=== PATIENT | female | born 1935 | race Caucasian/White ===

== ENCOUNTER → 2023-09-25 11:50 | Outpatient (REF) | payer MEDICARE, BC, SELFPAY ==
[2023-09-25 13:00] LABS: Hematocrit 34.6 % (37.0-47.0); Hemoglobin 10.9 g/dL (12.0-16.0); Mean Corp Hgb Conc. 31.5 g/dL (33.0-37.0); Mean Corpuscular Hgb 29.9 pg (27.0-31.0); Mean Corpuscular Volume 94.8 fL (81.0-99.0); Mean Platelet Volume 10.4 fL (7.4-10.4); Platelet Count 176 10^3/uL (130-400); Red Blood Cell Count 3.65 10^6/uL (4.20-5.40); White Blood Cell Count 4.1 10^3/uL (4.8-10.8)
[2023-09-25 13:20] LABS: ALT (SGPT) 14 U/L (0-35); AST (SGOT) 18 U/L (14-36); Alkaline Phosphatase 87 U/L (38-126); Blood Urea Nitrogen 35 mg/dl (7-17); Calcium 8.8 mg/dl (8.4-10.2); Carbon Dioxide 28 mmol/L (22-30); Chloride 104 mmol/L (98-107); Glucose 109 mg/dl (70-99); HDL Cholesterol 56 mg/dl; LDL Cholesterol, Calculated 44 mg/dl; Potassium 5.6 mmol/L (3.5-5.1); Sodium 137 mmol/L (135-145); Total Bilirubin 0.5 mg/dl (0.2-1.3); Total Cholesterol 112 mg/dl (50-199); Total Protein 6.1 g/dl (6.3-8.2); Triglyceride 62 mg/dl (10-149); Very Low Density Lipoprotein 12 mg/dl (0-30); eGFR 40.05
[2023-09-25 13:36] LABS: Free T4 1.25 ng/dl (0.78-2.19)
[2023-09-25 13:51] LABS: TSH 0.64 uIU/ml (0.47-4.68)
[2023-09-25 14:24] LABS: Glycohemoglobin (HgbA1c) 8.4 % (4.0-5.6)
== END ==
LOC: OLABN 11:50
PROVIDERS: ATTENDING PHYSICIAN Internal Medicine Geriatric Medicine
DX: E78.5 Hyperlipidemia, unspecified (principal); E11.22 Type 2 diabetes mellitus with diabetic chronic kidney disease; E03.9 Hypothyroidism, unspecified
CPT/HCPCS: 36415; 80053; 80061; 83036; 84439; 84443; 85027

== ENCOUNTER → 2023-12-18 09:53 | Outpatient (REF) | payer MEDICARE, BC, SELFPAY ==
[2023-12-18 11:49] LABS: ALT (SGPT) < 10 U/L (0-35); AST (SGOT) 17 U/L (14-36); Albumin 3.2 g/dl (3.5-5.0); Alkaline Phosphatase 109 U/L (38-126); Blood Urea Nitrogen 34 mg/dl (7-17); Calcium 8.8 mg/dl (8.4-10.2); Carbon Dioxide 25 mmol/L (22-30); Chloride 105 mmol/L (98-107); Glucose 184 mg/dl (70-99); Iron 68 ug/dl (37-170); Potassium 5.3 mmol/L (3.5-5.1); Sodium 137 mmol/L (135-145); Total Bilirubin 0.3 mg/dl (0.2-1.3); Total Protein 6.1 g/dl (6.3-8.2); eGFR 48.94
[2023-12-18 12:07] LABS: Vitamin D, 25-OH*** 40.4 ng/mL (30-80)
[2023-12-18 12:29] LABS: Glycohemoglobin (HgbA1c) 8.2 % (4.0-5.6)
== END ==
LOC: OLABN 09:53
PROVIDERS: ATTENDING PHYSICIAN Internal Medicine Geriatric Medicine
DX: E11.29 Type 2 diabetes mellitus with other diabetic kidney complication (principal); E55.9 Vitamin D deficiency, unspecified; E61.1 Iron deficiency
CPT/HCPCS: 36415; 80053; 82306; 83036; 83540

== ENCOUNTER → 2024-03-25 12:28 | Outpatient (REF) | payer MEDICARE, BC, SELFPAY ==
[2024-03-25 13:27] LABS: Hematocrit 32.3 % (37.0-47.0); Hemoglobin 10.6 g/dL (12.0-16.0); Mean Corp Hgb Conc. 32.8 g/dL (33.0-37.0); Mean Corpuscular Hgb 30.9 pg (27.0-31.0); Mean Corpuscular Volume 94.2 fL (81.0-99.0); Mean Platelet Volume 10.4 fL (7.4-10.4); Platelet Count 178 10^3/uL (130-400); Red Blood Cell Count 3.43 10^6/uL (4.20-5.40); Red Cell Dist. Width 13.1 % (11.5-14.5); White Blood Cell Count 3.6 10^3/uL (4.8-10.8)
[2024-03-25 13:37] LABS: ALT (SGPT) < 10 U/L (0-35); AST (SGOT) 15 U/L (14-36); Albumin 3.2 g/dl (3.5-5.0); Alkaline Phosphatase 102 U/L (38-126); Blood Urea Nitrogen 32 mg/dl (7-17); Calcium 8.7 mg/dl (8.4-10.2); Carbon Dioxide 27 mmol/L (22-30); Chloride 104 mmol/L (98-107); Glucose 142 mg/dl (70-99); HDL Cholesterol 43 mg/dl; LDL Cholesterol, Calculated 84 mg/dl; Potassium 5.6 mmol/L (3.5-5.1); Sodium 139 mmol/L (135-145); Total Bilirubin 0.4 mg/dl (0.2-1.3); Total Cholesterol 148 mg/dl (50-199); Total Protein 5.9 g/dl (6.3-8.2); Triglyceride 109 mg/dl (10-149); Very Low Density Lipoprotein 21 mg/dl (0-30); eGFR 33.73
[2024-03-25 13:49] LABS: Free T4 1.19 ng/dl (0.78-2.19)
[2024-03-25 14:36] LABS: Glycohemoglobin (HgbA1c) 7.5 % (4.0-5.6)
== END ==
LOC: OLABN 12:28
PROVIDERS: ATTENDING PHYSICIAN Internal Medicine Geriatric Medicine
DX: E11.22 Type 2 diabetes mellitus with diabetic chronic kidney disease (principal); E78.5 Hyperlipidemia, unspecified; E03.9 Hypothyroidism, unspecified
CPT/HCPCS: 36415; 80053; 80061; 83036; 84439; 84443; 85027

== ENCOUNTER → 2024-06-26 10:25 | Outpatient (REF) | payer MEDICARE, BC, SELFPAY ==
[2024-06-26 14:56] LABS: Glycohemoglobin (HgbA1c) 7.7 % (4.0-5.6)
== END ==
LOC: OLABN 10:25
PROVIDERS: ATTENDING PHYSICIAN Internal Medicine Geriatric Medicine
DX: E11.22 Type 2 diabetes mellitus with diabetic chronic kidney disease (principal)
CPT/HCPCS: 36415; 83036

== ENCOUNTER → 2024-09-23 11:07 | Outpatient (REF) | payer MEDICARE, BC, SELFPAY ==
[2024-09-23 13:02] LABS: Hematocrit 37.5 % (37.0-47.0); Hemoglobin 11.9 g/dL (12.0-16.0); Mean Corp Hgb Conc. 31.7 g/dL (33.0-37.0); Mean Corpuscular Hgb 29.8 pg (27.0-31.0); Mean Corpuscular Volume 93.8 fL (81.0-99.0); Platelet Count 159 10^3/uL (130-400); Red Cell Dist. Width 13.1 % (11.5-14.5); White Blood Cell Count 3.6 10^3/uL (4.8-10.8)
[2024-09-23 13:07] LABS: ALT (SGPT) 10 U/L (0-35); AST (SGOT) 15 U/L (14-36); Albumin 3.7 g/dl (3.5-5.0); Alkaline Phosphatase 102 U/L (38-126); Blood Urea Nitrogen 26 mg/dl (7-17); Calcium 9.1 mg/dl (8.4-10.2); Carbon Dioxide 27 mmol/L (22-30); Chloride 98 mmol/L (98-107); Glucose 221 mg/dl (70-99); HDL Cholesterol 61 mg/dl; LDL Cholesterol, Calculated 94 mg/dl; Potassium 5.5 mmol/L (3.5-5.1); Sodium 132 mmol/L (135-145); Total Bilirubin 0.8 mg/dl (0.2-1.3); Total Cholesterol 176 mg/dl (50-199); Total Protein 6.5 g/dl (6.3-8.2); Triglyceride 109 mg/dl (10-149); Very Low Density Lipoprotein 21 mg/dl (0-30); eGFR 43.81
[2024-09-23 13:19] LABS: Free T4 1.65 ng/dl (0.78-2.19)
[2024-09-23 13:27] LABS: Glycohemoglobin (HgbA1c) 7.5 % (4.0-5.6)
== END ==
LOC: OLABN 11:07
PROVIDERS: ATTENDING PHYSICIAN Internal Medicine Geriatric Medicine
DX: E78.5 Hyperlipidemia, unspecified (principal); E11.22 Type 2 diabetes mellitus with diabetic chronic kidney disease; E03.9 Hypothyroidism, unspecified
CPT/HCPCS: 36415; 80053; 80061; 83036; 84439; 84443; 85027

== ENCOUNTER → 2024-09-28 11:01 | Outpatient (REF) | payer MEDICARE, SELFPAY ==
[2024-09-28 12:59] LABS: TSH 0.92 uIU/ml (0.47-4.68)
== END ==
LOC: OLABN 11:01
PROVIDERS: ATTENDING PHYSICIAN Internal Medicine Geriatric Medicine
DX: E03.9 Hypothyroidism, unspecified (principal)
CPT/HCPCS: 36415; 84443

== ENCOUNTER → 2024-12-23 11:07 | Outpatient (REF) | payer MEDICARE, SELFPAY ==
[2024-12-23 11:47] LABS: Blood Urea Nitrogen 27 mg/dl (7-17); Calcium 8.2 mg/dl (8.4-10.2); Carbon Dioxide 29 mmol/L (22-30); Chloride 102 mmol/L (98-107); Glucose 85 mg/dl (70-99); Iron 49 ug/dl (37-170); Potassium 4.7 mmol/L (3.5-5.1); Sodium 135 mmol/L (135-145); eGFR 43.81
[2024-12-23 12:03] LABS: Glycohemoglobin (HgbA1c) 7.3 % (4.0-5.6); Vitamin D, 25-OH*** 36.7 ng/mL (30-80)
== END ==
LOC: OLABN 11:07
PROVIDERS: ATTENDING PHYSICIAN Internal Medicine Geriatric Medicine
DX: E87.5 Hyperkalemia (principal); E11.22 Type 2 diabetes mellitus with diabetic chronic kidney disease; E61.1 Iron deficiency; E55.9 Vitamin D deficiency, unspecified
CPT/HCPCS: 36415; 80048; 82306; 83036; 83540

== ENCOUNTER → 2025-03-11 11:01 | Outpatient (REF) | payer MEDICARE, SELFPAY ==
[2025-03-11 12:38] LABS: Hematocrit 35.5 % (37.0-47.0); Hemoglobin 10.8 g/dL (12.0-16.0); Mean Corp Hgb Conc. 30.4 g/dL (33.0-37.0); Mean Corpuscular Volume 91.3 fL (81.0-99.0); Nucleated Red Blood Cells % 0 %; Platelet Count 189 10^3/uL (130-400); Red Cell Dist. Width 14.9 % (11.5-14.5)
[2025-03-11 13:27] LABS: ALT (SGPT) < 10 U/L (0-35); AST (SGOT) 11 U/L (14-36); Albumin 2.6 g/dl (3.5-5.0); Alkaline Phosphatase 73 U/L (38-126); Blood Urea Nitrogen 21 mg/dl (7-17); Calcium 8.1 mg/dl (8.4-10.2); Carbon Dioxide 27 mmol/L (22-30); Chloride 105 mmol/L (98-107); Glucose 144 mg/dl (70-99); Potassium 4.4 mmol/L (3.5-5.1); Sodium 135 mmol/L (135-145); Total Protein 5.2 g/dl (6.3-8.2); eGFR 43.81
== END ==
LOC: OLABN 11:01
PROVIDERS: ATTENDING PHYSICIAN Internal Medicine Geriatric Medicine
DX: I87.2 Venous insufficiency (chronic) (peripheral) (principal); I73.9 Peripheral vascular disease, unspecified; D63.8 Anemia in other chronic diseases classified elsewhere
CPT/HCPCS: 36415; 80053; 83880; 85025

== ENCOUNTER → 2025-03-17 10:45 | Outpatient (REF) | payer MEDICARE, SELFPAY ==
[2025-03-17 12:01] LABS: Blood Urea Nitrogen 16 mg/dl (7-17); Calcium 8.2 mg/dl (8.4-10.2); Carbon Dioxide 28 mmol/L (22-30); Chloride 105 mmol/L (98-107); Glucose 127 mg/dl (70-99); Potassium 4.7 mmol/L (3.5-5.1); Sodium 133 mmol/L (135-145); eGFR > 60.00
== END ==
LOC: OLABN 10:45
PROVIDERS: ATTENDING PHYSICIAN Internal Medicine Geriatric Medicine
DX: I50.20 Unspecified systolic (congestive) heart failure (principal)
CPT/HCPCS: 36415; 80048; 83880

== ENCOUNTER → 2025-03-24 09:57 | Outpatient (REF) | payer MEDICARE, SELFPAY ==
[2025-03-24 11:00] LABS: Hematocrit 34.0 % (37.0-47.0); Hemoglobin 10.4 g/dL (12.0-16.0); Mean Corp Hgb Conc. 30.6 g/dL (33.0-37.0); Mean Corpuscular Volume 91.6 fL (81.0-99.0); Platelet Count 163 10^3/uL (130-400); Red Cell Dist. Width 14.9 % (11.5-14.5)
[2025-03-24 11:48] LABS: ALT (SGPT) < 10 U/L (0-35); AST (SGOT) 14 U/L (14-36); Albumin 2.5 g/dl (3.5-5.0); Alkaline Phosphatase 69 U/L (38-126); Blood Urea Nitrogen 19 mg/dl (7-17); Calcium 7.9 mg/dl (8.4-10.2); Carbon Dioxide 25 mmol/L (22-30); Chloride 107 mmol/L (98-107); Glucose 134 mg/dl (70-99); HDL Cholesterol 51 mg/dl; LDL Cholesterol, Calculated 38 mg/dl; Potassium 4.8 mmol/L (3.5-5.1); Sodium 133 mmol/L (135-145); Total Protein 5.2 g/dl (6.3-8.2); Very Low Density Lipoprotein 13 mg/dl (0-30); eGFR 36.41
[2025-03-24 12:19] LABS: TSH 3.01 uIU/ml (0.47-4.68)
[2025-03-24 14:06] LABS: Glycohemoglobin (HgbA1c) 7.2 % (4.0-5.6)
== END ==
LOC: OLABN 09:57
PROVIDERS: ATTENDING PHYSICIAN Internal Medicine Geriatric Medicine
DX: E78.5 Hyperlipidemia, unspecified (principal); E11.22 Type 2 diabetes mellitus with diabetic chronic kidney disease; I50.20 Unspecified systolic (congestive) heart failure
CPT/HCPCS: 36415; 80053; 80061; 83036; 83880; 84439; 84443; 85027

== ENCOUNTER 2025-03-30 16:33 | Inpatient (IN) | payer MEDICARE, SELFPAY ==
[2025-03-30] VITALS (14 sets, daily range): BP systolic 87–134; BP diastolic 50–103; BMI 23.3
[2025-03-30 12:07] LABS: Hematocrit 35.7 % (37.0-47.0); Hemoglobin 11.1 g/dL (12.0-16.0); Mean Corp Hgb Conc. 31.1 g/dL (33.0-37.0); Mean Corpuscular Volume 89.0 fL (81.0-99.0); Nucleated Red Blood Cells % 0 %; Platelet Count 229 10^3/uL (130-400); Red Cell Dist. Width 14.6 % (11.5-14.5)
[2025-03-30 12:29] LABS: Urine Character Cloudy (Clear)
[2025-03-30 12:42] LABS: ALT (SGPT) 14 U/L (0-35); AST (SGOT) 17 U/L (14-36); Albumin 2.7 g/dl (3.5-5.0); Alkaline Phosphatase 122 U/L (38-126); Blood Urea Nitrogen 43 mg/dl (7-17); Calcium 8.2 mg/dl (8.4-10.2); Carbon Dioxide 24 mmol/L (22-30); Chloride 97 mmol/L (98-107); Estimated Creatinine Clearance 21 ml/min; Glucose 204 mg/dl (70-99); Sodium 127 mmol/L (135-145); Total Protein 5.5 g/dl (6.3-8.2); eGFR 26.93
--- NOTE | 2025-03-30 12:47 | ED.GENMED ---
History of Present Illness
General
Chief Complaint: Change Level of Consciousness
Source: patient, records and [facility] records
Exam Limitations: altered mental status
Time Seen by Provider: 03/30/25 12:35
Nursing documentation reviewed up to this point in time: agreed with
History of Present Illness
History of Present Illness:
CO patient presents with confusion, period of unrepsonsiveness
here she is febrile, hypoxic
tells me she has't eaten in a few days
iddm, pvd, s/p aka left
ex smoker
not on oxygen
Past History
Past History
ED Past Medical History: IDDM and Other (Chronic anemia)
ED Past Surgical History: Orthopedic and Other (4 toes amputated, L AKA, vein work)
Social History
Tobacco: Former smoker
Alcohol: None
Drug: None
Personal:
Living: [facility]
Employment: Not employed
Family History
Family History: Other (Noncontributory)
Review of Systems
Review of Systems
Other source history: transfer record
All Other Systems: Not applicable
Respiratory: Reports cough and trouble breathing
Neurological: Reports weakness
Phy Exam
General Physical Exam
General Presentation: mild distress
General Skin: warm
Cardiovascular Exam
Cardiovascular Exam: irregularly irregular
Pulmonary Exam
Pulmonary Exam: generalized wheezing
Oxygen Status: oxygen 3 liters via NC
Cough: no cough
Gastrointestinal Exam
Gastrointestinal Exam: non tender and soft
Neurological Exam
Neurological Exam: alert and oriented x3
Musculoskeletal Exam
Musculoskeletal Exam: full ROM and AKA
Skin Exam
Skin Exam: warm/dry
Psychiatric Exam
Psychiatric Exam: other (calm, )
Sepsis
Sepsis Screening
Sepsis Assessment: Sepsis
Sepsis Screen
Sepsis Screen: Sepsis
Date: 03/30/25
Time: 18:54
Course
Orders/Labs/Results
Orders:
Orders
03/30/25 11:45
Electrocardiogram (*1) Urgent
Reason for Study: Shortness of Breath
03/30/25 11:46
EKG- Treatment ONCE
03/30/25 11:47
Complete Blood Count/With Diff Urgent
03/30/25 12:18
Comprehensive Metabolic Panel Urgent
NT-proBNP Urgent
Troponin I Urgent
Urinalysis Reflex To Culture Urgent
Date Specimen was Collected: 03/30/25
Time Specimen was Collected: 12:16
Urine Microscopic Reflex Cult Urgent
Urine Culture Urgent
FANTA Source: U
Specimen Description:
Date Specimen was Collected: 03/30/25
Time Specimen was Collected: 12:16
03/30/25 12:35
CR Chest Portable - 1 View Urgent
Comment:
Reason For Exam: fever
Reason Study Needs to be Portable: Patient Unstable
03/30/25 12:47
CT Head W/o Iv Contrast Urgent
Comment:
Reason For Exam: urepsoensive
0.9% Sodium Chloride 1000 ml [Nss] 1,000 ml IV BOLUS
Acetaminophen [Tylenol] 650 mg PO NOW STA
03/30/25 13:51
Piperacillin/Tazo 2.25 Gram [Zosyn] 2.25 grams in 50 ml IV NOW
03/30/25 Dinner
1800 calorie (15 carb) Diabetic
At Your Request: Limited Participation
Does patient need a safe tray?: No
03/30/25 15:13
0.9% Sodium Chloride 1000 ml [Nss] 1,000 ml IV BOLUS
03/30/25 16:03
Admit/Transfer Patient As Directed
Co-Sign Provider:
Level of Care: Inpatient admission
Assign to:: IMU- Intermediate Care
Physician / Group: Hospitalist
Diagnosis: Acute metabolic encephalopathy secondary to sepsis
Reason for Hospitalization: Acute metabolic encephalopathy secondary to sepsis
Expected length of stay greater than two midnights?: Yes
ELOS- Estimated Length of Stay in days: 3
I certify the patient meets the requirements for IP care: Yes
03/30/25 16:04
PRN Pain Medication Management As Directed
May give lesser potent ordered pain med per pt: Yes
preference::
Protocol:: Medication orders for pain may be administered in a
manner that supports deferring to patient preference
when the pt is:
- Requesting an ordered lesser potent pain medication.
Least to most potent pain medications are defined
as: acetaminophen < NSAID < tramadol < opioids
(morphine, oxycodone, hydromorphone).
- Requesting a lesser dose of the same medication IF
ORDERED.
- Requesting a less intrusive route of administration
if both routes are prescribed by the provider (PO <
IV).
03/30/25 16:11
Code Status As Directed
Resuscitation Status: Do not resuscitate
Based on pt advanced directive or healthcare POA form: Yes
DNR Bracelet Application ONCE
Abnormal Lab Results
03/30/25 03/30/25
11:47 12:18
RBC 4.01 L 10^6/uL
(4.20-5.40)
Hgb 11.1 L g/dL
(12.0-16.0)
Hct 35.7 L %
(37.0-47.0)
MCHC 31.1 L g/dL
(33.0-37.0)
RDW 14.6 H %
(11.5-14.5)
Abs Immat Gran (auto) 0.1 H 10^3/uL
(0-0.05)
Absolute Neuts (auto) 10.0 H 10^3/uL
(1.4-6.5)
Absolute Lymphs (auto) 0.3 L 10^3/uL
(1.2-3.4)
Neutrophils % 92.4 H %
(42.2-75.2)
Lymphocytes % 2.8 L %
(20.5-51.1)
Sodium 127 L mmol/L
(135-145)
Chloride 97 L mmol/L
(98-107)
BUN 43 H mg/dl
(7-17)
Creatinine 1.8 H mg/dL
(0.6-1.0)
Glucose 204 H mg/dl
(70-99)
Calcium 8.2 L mg/dl
(8.4-10.2)
Total Protein 5.5 L g/dl
(6.3-8.2)
Albumin 2.7 L g/dl
(3.5-5.0)
Ur Occult Blood Reflex 4+ A
(Negative)
Leukocyte Esterase Rfl 3+ A
(Negative)
Urine WBC (Reflex) 60-70 A /HPF
(0-5)
Urine Bacteria (Reflex) Few A
(Negative)
Urine Glucose 2+ A
(Negative)
Urine Albumin (Reflex) 3+ A
(Neg - Trace)
03/30/25 11:47
03/30/25 12:18
Vital Signs
Initial and Last Documented VS:
Initial Vital Signs
Pulse Resp BP Pulse Ox
130 20 134/93 71
03/30/25 11:47 03/30/25 11:47 03/30/25 11:47 03/30/25 11:47
Last Documented Vital Signs
Temp Pulse Resp BP Pulse Ox
97.6 F 98 18 113/73 100
03/30/25 16:27 03/30/25 17:54 03/30/25 17:54 03/30/25 17:24 03/30/25 17:54
MDM/Problems Addressed
Differential Diagnosis Includes:
infection, metabolic, structureal
MDM/Problems Addressed:
confusion fever low oxygen
Chronic conditions affecting care: DM and Kidney disease
Acute Exacerbation and/or Progression of Chronic Illness: DM and Kidney disease
*Radiology
Radiology exam reviewed: preliminary read by ED provider
*Pulse Oximetry
SaO2: 71
Oxygen Mode of Delivery: Room air
Patient hypoxic: yes
*EKG
Interpreted by ED Provider?: Yes
Interpretation: abnormal
Comparison EKG: no comparison EKG present
Rate: tachycardiac
Rhythm: a-fib
Ischemia: non-specific ST changes
*[employer] Interpretation
Rate: tachycardiac
Interpretation: abnormal
Heart Rate: 118
Rhythm: a-fib
*Critical Care Note
Total Time (30-74mins, 75-104mins- exclusive of procedures): 31
Data Reviewed
Review of Other/Old Records Reveals: Labs, Progress Notes and Discharge Summary
Source: patient, records and [facility] records
ED Attending Note
-
Portions of this chart may have been created with voice recognition software.� Occasional wrong word or��sound alike� substitutions may have occurred due to the inherent limitations of voice recognition software.
Discharge Plan
Departure
Patient Disposition: Admit
Date of Disposition: 03/30/25
Time of Disposition: 14:25
Admit to: Telemetry
Presentation/result/management discussed w/ accepting MD/DO: Hospitalist
Patient with high blood pressure during this ER visit?: No
Condition: Fair
Covid-19: Not Applicable
Discharge Problem:
Weakness, Acute UTI, Hypoxia, hyponatremia
Interventions
Interventions:
*Risk Screen - Suicide Last Done: 03/30/25 11:47
*General Assessment Last Done: 03/30/25 11:47
*Neglect/Abuse Screening Last Done: 03/30/25 11:47
*ED- Fall Risk Assessment Last Done: 03/30/25 11:47
*ED COVID-19 Vaccine History Last Done: 03/30/25 11:47
ED- Cardiac Assessment Last Done: 03/30/25 11:47
ED- Neurological Assessment Last Done: 03/30/25 11:47
ED-Psychological Assessment Last Done: 03/30/25 11:47
ED- Pulmonary Assessment Last Done: 03/30/25 11:47
[2025-03-30 12:55] LABS: Urine Red Blood Cell 0-2 /HPF (0-2); Urine Squamous Cell 0-2 /LPF (Few)
[2025-03-30 12:56] LABS: Urine White Cell 60-70 /HPF (0-5)
[2025-03-30] MEDS: TYLENOL 650 MG PO (12:58)
[2025-03-30] MEDS: NSS 1000 IV ×3 (12:59→21:39)
[2025-03-30 13:01] LABS: Troponin I 0.024 ng/ml
[2025-03-30 13:06] LABS: Potassium 4.6 mmol/L (3.5-5.1)
[2025-03-30] MEDS: ZOSYN 50 IV ×2 (14:23→21:38)
--- NOTE | 2025-03-30 14:43 | W.PN.UPDATE ---
Update Note
Progress Note Update
I personally performed a history and physical exam of the patient and discussed management with the resident. I reviewed the resident's note and agree with the documented findings and plan of care HPI/CC.
89-year-old female who presents with a chief complaint of change in mental status.
105/50, 125, 17, 100.2 F, 71% on 5L NC O2
Gen: NAD, awake and alert, appears chronically ill
Eyes: EOMI, PERRLA, no scleral icterus.
Neck: supple.
CV: Tachycardic, irregularly irregular, +S1/S2, no m/r/g.
Resp: CTAB anteriorly, no rales, wheezes, or rhonchi.
Abd: +BS, soft, NT, ND
Skin: No rashes. Right lower extremity with 1�2+ edema, L AKA
Neuro: CN 2-12 intact, non-focal.
Psych: Normal mood and affect.
Lab Results
03/30/25 03/30/25
11:47 12:18
WBC 10.8
RBC 4.01 L
Hgb 11.1 L
Hct 35.7 L
MCV 89.0
MCH 27.7
MCHC 31.1 L
RDW 14.6 H
Plt Count 229 D
MPV 9.9
Abs Immat Gran (auto) 0.1 H
Absolute Neuts (auto) 10.0 H
Absolute Lymphs (auto) 0.3 L
Absolute Monos (auto) 0.4
Absolute Eos (auto) 0.0
Absolute Basos (auto) 0.0
Immature Gran % 0.5
Neutrophils % 92.4 H
Lymphocytes % 2.8 L
Monocytes % 3.9
Eosinophils % 0.1
Basophils % 0.3
Nucleated RBC % 0
Sodium Cancelled 127 L
Potassium Cancelled 4.6
Chloride Cancelled 97 L
Carbon Dioxide Cancelled 24
BUN Cancelled 43 H
Creatinine Cancelled 1.8 H
Estimated Creat Clear Cancelled 21
eGFR Cancelled 26.93
Glucose Cancelled 204 H
Calcium Cancelled 8.2 L
Total Bilirubin Cancelled 0.9
AST Cancelled 17
ALT Cancelled 14
Alkaline Phosphatase Cancelled 122
Troponin I Cancelled 0.024
Xns-J-Dyyzpozyubh Pept Cancelled [id number]
Total Protein Cancelled 5.5 L
Albumin Cancelled 2.7 L
Urine Color Yellow
Urine Clarity Cloudy
Urine pH 5.0
Ur Specific Hughes 1.025
Urine Ketones Negative
Ur Occult Blood Reflex 4+ A
Urine Nitrite (Reflex) Negative
Urine Bilirubin Negative
Urine Urobilinogen Negative
Leukocyte Esterase Rfl 3+ A
Urine RBC 0-2
Urine WBC (Reflex) 60-70 A
Ur Squamous Epith Cells 0-2
Urine Bacteria (Reflex) Few A
Urine Glucose 2+ A
Urine Albumin (Reflex) 3+ A
CT brain: No evidence of acute intracranial abnormality. 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 Interval increase in paranasal sinus disease especially on the right side compared to prior CT of the head.
Extensive left-sided paranasal sinus disease appears fairly stable.
CXR: Subtle increase in interstitial markings within the mid to lower lungs, new from previous radiograph. Main differential considerations of interstitial edema and interstitial-type pneumonia
Acute hypoxemic respiratory failure:
-71% on 5L NC O2 on admission, afebrile (temp 100.2 F)
-current etiology for hypoxemia is PNA
-given Zosyn in ER
-cont with Zosyn/Vanco
Pyuria/possible UTI:
-cont Zosyn
-follow UCx
Severe sepsis:
-with acute metabolic encephalopathy
-POA a/e/b tachycardia, tachypnea, source of infection PNA +/- UTI with evidence of end organ damage of GABBY
-1L NS given in the ER
-with hypotension needs another 1L for 30cc/kg
-trend Cr
Afib with RVR:
-c/s cards
-check echo
-volume resuscitation/sepsis tx prior to additional rate controlling meds
-start Eliquis 2.5mg BID
Other problems:
Chronic HFpEF: check echo, cont BB with holding parameters, hold lasix with GABBY
Hyponatremia: trend Na with IVFs
h/o CVA s/pt tPA 2017
Migraines
Hypothyroidism: cont Levoxyl, check TSH
Essential HTN: cont BB
DM2: Hold Farxiga with possible UTI. Cont basal/bolus insulin, SSI/accuchecks, check a1c
DNR as per [facility] records
Eliquis
IMU
--- NOTE | 2025-03-30 16:58 | HPS.HSE ---
Family Physician
-
Family Physician: Omi Hernandes
Chief Complaint
-
Change Level of Consciousness
History of Present Illness
Patient is an 89-year-old female who was found to be unresponsive for about 5-7mins. She has no recollection of the there is no chest pain no palpitation no dizziness.
She gave history of having right lower leg swelling and pain that has been treated recently.
She gives a history of poor appetite, nausea and weakness for few days duration and vomiting today.
She was found to be hypoxic tachycardic and febrile
Medical History
Past Medical History
Past Medical History: Reports CHF (HFpEF 70-75% Last Echo 2018), CVA, Hypothyroidism, IDDM and Valvular Disease
Past Surgical History: Reports Orthopedic (S/p above-knee amputation)
Social History
Tobacco: Former Smoker
Personal:
Living: [facility] ([facility])
Employment: Not Employed
Family History
Family History: Not pertinent
Allergies / Home Medications
Allergies reflects when Allergies were last updated in [facility].
Home Medications with original date entered in [facility]
Allergy/Medication List:
Allergies
Allergy/AdvReac Type Severity Reaction Status Date / Time
amlodipine Allergy Unknown Verified 03/30/25 16:34
sulfamethoxazole (From Allergy 'kidney Verified 03/30/25 16:34
Bactrim) doctor
told me
not to
take it'
trimethoprim (From Bactrim) Allergy 'kidney Verified 03/30/25 16:34
doctor
told me
not to
take it'
Home Medications
insulin aspart U-100 100 unit/mL (3 mL) subcutaneous pen (Novolog FlexPen U-100 Insulin aspart) 6 units SC AC 08/10/16
sodium bicarbonate 650 mg tablet 650 mg PO BID 08/10/16
acetaminophen 325 mg tablet 650 mg PO Q4HPRN PRN mild pain/fever 08/17/16
ferrous sulfate 325 mg (65 mg iron) tablet (FeroSul) 325 mg PO MOWEFR@0800 08/17/16
magnesium hydroxide 400 mg/5 mL oral suspension 30 ml PO HSPRN PRN constipation 08/17/16
pravastatin 20 mg tablet 20 mg PO WE@0800 08/17/16
carvedilol 12.5 mg tablet 25 mg PO BID 05/29/18
cholecalciferol (vitamin D3) 1,250 mcg (50,000 unit) capsule 1,250 mcg PO MONTHLY 03/30/25
dapagliflozin propanediol 5 mg tablet (Farxiga) 5 mg PO DAILY 03/30/25
duloxetine 20 mg capsule,delayed release 20 mg PO DAILY 03/30/25
furosemide 20 mg tablet 20 mg PO DAILY 03/30/25
insulin glargine 100 unit/mL (3 mL) subcutaneous pen (Basaglar KwikPen U-100 Insulin) 12 unit SC HS Diabetes 03/30/25
levothyroxine 75 mcg tablet 75 mcg PO DAILY@0600 Thyroid 03/30/25
lidocaine 4 % topical cream 1 applic topical TIDPRN PRN phantom limb pain 03/30/25
oxycodone-acetaminophen 5 mg-325 mg tablet 1 tab PO Q4HPRN PRN moderate pain; use lidocaine first 03/30/25
Review of Systems
-
History Source: Patient and Transfer Record
Constitutional: Reports Fever
Respiratory: Reports Cough (Says she has occasional cough)
Cardiac: Reports No Symptoms
Abdomen/GI: Reports Diarrhea (Chronic diarrhea)
: Reports Incontinence
Musculoskeletal: Reports Other (Phantom pain in the left leg. Peripheral neuropathy on the right. Recently being treated for right leg swelling)
Neurological: Reports No Symptoms
Endocrine: Reports No Symptoms
Physical Exam
Vital Signs
Vital Signs
Temp Pulse Resp BP Pulse Ox
97.6 F 96 20 126/65 100
03/30/25 16:27 03/30/25 16:27 03/30/25 16:27 03/30/25 16:27 03/30/25 16:27
Physical Exam
General: Comfortable and Appears Chronically Ill
HEENT: NormoCephalic and Hearing Impaired
Respiratory: Clear
Cardiac: S1/S2 and Irregular Rhythm
GI: Soft, Non Tender and Non Distended
Musculoskeletal: Other (Left- leg above-knee amputation. Right leg -edema 1-2+, close loss of of sensation to upper one third of the leg)
Neuro: Awake, Alert, Oriented and AO x 3
Laboratory Results
-
03/30/25 11:47
03/30/25 12:18
Laboratory Results
Total Bilirubin 0.9 mg/dl (0.2-1.3) 03/30/25 12:18
AST 17 U/L (14-36) 03/30/25 12:18
ALT 14 U/L (0-35) 03/30/25 12:18
Alkaline Phosphatase 122 U/L (38-126) 03/30/25 12:18
Troponin I 0.024 ng/ml 03/30/25 12:18
Impression/Plan
-
IMPRESSION:
Acute hypoxic respiratory failure
Acute metabolic encephalopathy secondary to sepsis
Urinary tract infection
Acute on chronic CKD
Right leg swelling
Heart failure with preserved preserved ejection
Insulin-dependent diabetes mellitus
Peripheral neuropathy
PLAN:
#Acute hypoxic respiratory failure
-Head CT showed no acute ischemic changes
-Patient was found to be hypoxic saturating at 70s,
-Tachycardic, tachypneic, febrile
-Currently saturating 100% 5 L of oxygen via nasal cannula
-Chest x-ray did not show any focal pneumonia,
-However did show increased interstitial marking
-Hypoxia likely due to pneumonia
-Continue oxygen therapy with a goal of >90%
# Urinary tract infection
-Urinalysis positive for blood, WBC, and bacteria
-Reflex to culture
- Hold Farxiga
# Severe sepsis
- Severe sepsis with metabolic encephalopathy
- The white count is janet, increased from baseline
- Elevated HR, RR, Temp,
- Likely pneumonia,+/- urinary tract infection
- IV fluid normal saline 1 L bolus X2 given in the ER
-IV fluid 1 L at maintenance 100ml/hr
- ABX IV Zosyn and Vanco
- Blood culture x 2
- Lactic acid
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
-Cr 1.8 creatinine increased from 1.4 (03/24/2025)
-Hold furosemide resume with creatinine at baseline
-Continue to monitor BMP
-Suspect bicarb is 4 CKD 3B, awaiting records to confirm
# Heart failure with preserved ejection fraction
- Last echo done 2018 showed EF of 70 to 75%
-BNP 23,700, ( 03/24/2025- 17,300)
-ECHO
- Cardiac consult
- cont BB with holding parameters, hold lasix, Farxiga
- Daily weight
-I/Os
# Cardiac arrhythmias
-EKG done in the ED shows new A-fib with RVR
-CHADVASC score at least 8
-Start Eliquis 2.5mg PO bid
-Repeat EKG in the morning,
-Cardiology consult
# Insulin-dependent diabetes mellitus
-Fair diabetes control BG 204, 03/24/2025 A1c 7.2
-Continue Insulin glargine 12iu HS, Aspart 6 iu
- Hold Farxiga
- Low resistant insulin sliding scale
- Diabetic diet/glucose monitoring
#Right LE swelling
- In the setting of DM/Neuropathy
-Do peripheral vascular ultrasound
#Hyponatremia: trend Na with IVFs
#h/o CVA s/pt tPA 2017, continue pravastatin
#Hypothyroidism: cont Levoxyl, check TSH
# H/O BKA: Oxycodone, lidocaine for phantom pain
# Chronic ambulatory dysfunction: PT/ OT
#Peripheral neuropathy; duloxetine,
#Migraines
DVT PPX- : SCDS, Elliquis
CODE STATUS ; DNR
DISPO ; Admit to IMU
[2025-03-30] MEDS: VANCOCIN 530 MG IV (17:49)
--- NOTE | 2025-03-30 18:23 | CON.CAR ---
Addendum entered and electronically signed by Truman Cornelius MD 03/31/25 08:28:
I saw and evaluated the patient with the resident on 03/30/25 at approximately 6pm. I was present for the whittaker portions of the history and exam and personally performed the MDM, including reviewing labs, assessing data, and directing management plan. I
agree with the residents note with my comments/adjustments below:
89 yo resident of home resident who is a poor historian with a history of PAD status post left AKA, type 2 diabetes, prior CVA, recent diagnosis of CHF.. She reports Dr. Braga sees her at [facility]. In the middle at the end of last month,
she was told she needed a diuretic. Is unclear if she is ever been told she had atrial fibrillation in the past. She prevents with increased edema and a reported poor response to diuretic. She was sent in for complaint of altered mental status
but appears alert and oriented during our exam. She does seem to have poor insight to her medical problems
On exam, she has an irregularly irregular rate and rhythm with a normal S1-S2 no murmur rubs gallops were appreciated, she has edema 1+ in the right leg 1+ in the left stump, JVP is elevated but there is likely a V wave making this unreliable, lungs
are clear to auscultation.
EKG tracing showed atrial fibrillation with rapid ventricular response, septal infarct pattern, that makes V6 that makes it better nonspecific ST-T wave changes.
Chest x-ray from 03/30/2025 shows cephalization with increased interstitial markings.
Assessment and plan:
Heart failure unknown ejection fraction: Agree with IV diuresis with intensive monitoring, add GDMT as indicated and needed.
Atrial fibrillation unspecified type, rate is relatively controlled, continue her beta-kiki. Recommend DOAC 2.5 mg of Eliquis p.o. twice daily.
Sepsis: Findings concerning for UTI, treatment per medicine
PAD: Continue statin will be on Eliquis
Altered mental status: Secondary to sepsis with possible baseline cognitive difficulties?
Original Note:
Consultation
Consultation Request
Date/Time Consultation Requested: 03/30/2025, 1622
Date/Time Consultation Performed: 03/30/2025, 1730
Requesting Provider:
Performing Provider: Dr. Cornelius, Dr. Perez.
Reason for Consultation: New onset A-fib
Medical History
-
Chief Complaint: Altered mental status
History of Present Illness:
89-year-old female, Danielle from [facility] with heart failure with preserved ejection fraction, chronic anemia, H/O CVA, DM type II on insulin, hypertension, hyperlipidemia, peripheral vascular disease s/p AKA, was sent to the ER
after she became unresponsive and appeared confused. Patient appears to be at her baseline mental status when I examined her. She reports being dyspneic and noticed lower extremity swelling since 2 weeks, was given Lasix 20 mg since then, also
reports that she lost her appetite and was nauseous from the past 2 days, did not eat much. She denies fever/chills, chest pain, palpitations, lightheadedness. In the ER she had normal white count, was tachycardic and tachypneic, Tmax�100.2,
Hb�11.1, hyponatremic sodium�127, BUN/creatinine�43/1.8. U/a with evidence of UTI. Patient did not sepsis and was given a fluid bolus and started on antibiotics. EKG�A-fib with RVR. Chest x-ray with evidence of interstitial edema and
cephalization. Cardiology was consulted for new onset A-fib.
Past Medical History
Past Medical History: CVA, HTN, Hypercholesterolemia, Hypothyroidism, IDDM and Other (Chronic anemia)
Past Surgical History: Orthopedic (Toe amputation, left AKA.)
Social History
Tobacco: Former Smoker
Alcohol: None
Drug: None
Personal:
Living: [facility]
Family History
Family History: Reviewed & Not Pertinent
Allergies / Home Medications
Allergy/AdvReac Type Severity Reaction Status Date / Time
amlodipine Allergy Unknown Verified 03/30/25 16:34
sulfamethoxazole (From Allergy 'kidney Verified 03/30/25 16:34
Bactrim) doctor
told me
not to
take it'
trimethoprim (From Bactrim) Allergy 'kidney Verified 03/30/25 16:34
doctor
told me
not to
take it'
�Medication �Instructions �Recorded �Confirmed �Type
insulin aspart U-100 100 unit/mL 6 units SC AC 08/10/16 03/30/25 History
(3 mL) subcutaneous pen (Novolog
FlexPen U-100 Insulin aspart)
sodium bicarbonate 650 mg tablet 650 mg PO BID 08/10/16 03/30/25 History
acetaminophen 325 mg tablet 650 mg PO Q4HPRN PRN mild 08/17/16 03/30/25 History
pain/fever
ferrous sulfate 325 mg (65 mg 325 mg PO MOWEFR@0800 08/17/16 03/30/25 History
iron) tablet (FeroSul)
magnesium hydroxide 400 mg/5 mL 30 ml PO HSPRN PRN constipation 08/17/16 03/30/25 History
oral suspension
pravastatin 20 mg tablet 20 mg PO WE@0800 08/17/16 03/30/25 History
carvedilol 12.5 mg tablet 25 mg PO BID 05/29/18 03/30/25 History
cholecalciferol (vitamin D3) 1,250 1,250 mcg PO MONTHLY 03/30/25 03/30/25 History
mcg (50,000 unit) capsule
dapagliflozin propanediol 5 mg 5 mg PO DAILY 03/30/25 03/30/25 History
tablet (Farxiga)
duloxetine 20 mg capsule,delayed 20 mg PO DAILY 03/30/25 03/30/25 History
release
furosemide 20 mg tablet 20 mg PO DAILY 03/30/25 03/30/25 History
insulin glargine 100 unit/mL (3 12 unit SC HS Diabetes 03/30/25 03/30/25 History
mL) subcutaneous pen (Basaglar
KwikPen U-100 Insulin)
levothyroxine 75 mcg tablet 75 mcg PO DAILY@0600 Thyroid 03/30/25 03/30/25 History
lidocaine 4 % topical cream 1 applic topical TIDPRN PRN 03/30/25 03/30/25 History
phantom limb pain
oxycodone-acetaminophen 5 mg-325 1 tab PO Q4HPRN PRN moderate pain; 03/30/25 03/30/25 History
mg tablet use lidocaine first
Review of Systems
-
All other systems: Negative unless noted
Physical Exam
Vital Signs
Temp Pulse Resp BP Pulse Ox
97.6 F 98 18 113/73 100
03/30/25 16:27 03/30/25 17:54 03/30/25 17:54 03/30/25 17:24 03/30/25 17:54
Lab Results
03/30/25 11:47
03/30/25 12:18
Troponin I 0.024 ng/ml 03/30/25 12:18
Wrl-O-Ilaqxziiehf Pept 36697 pg/ml 03/30/25 12:18
Physical Exam
General: No Apparent Distress
HEENT: Other (On 3 L nasal cannula)
Respiratory: Clear
Cardiac: S1/S2, Irregular Rhythm and Other (Right lower extremity edema up to the thigh)
GI: Soft, Non Tender, Non Distended and Normal Bowel Sounds
Skin: Warm and Dry
Neuro: Awake, Alert, Oriented and AO x 3
Impression / Plan
-
Impression
89-year-old female with CHF of unknown EF, chronic anemia, history of CVA, hypertension, hyperlipidemia, IDDM, PVD, hypothyroidism presenting to the ER with altered mental status and found to be septic secondary to UTI.
Plan
#CHF with unknown EF
Elevated BNP�23,700
Troponins negative
Latest echo in 2018 with EF 70�75%, stage I diastolic dysfunction.
Update echo
EKG�A-fib with RVR
Chest x-ray with interstitial edema and cephalization.
GABBY at presentation, BUN/creatinine�43/1.8
Patient already received IV fluid bolus in the ER.
Recommend discontinuing fluids.
Will diurese with IV Lasix 40 mg twice daily.
Monitor electrolytes and renal function.
Monitor I/O's, weights.
Monitor respiratory status. Patient was not on home oxygen. Currently on 3 L nasal cannula, wean as able.
Continue carvedilol and dapagliflozin.
Patient requires intensive monitoring with daily clinical exams, labs, medication adjustments depending on her clinical progression.
#New onset A-fib with RVR
Contributing factors-sepsis vs heart failure
EKG - A-fib with RVR
Pablo Vasc score of 9
Will need anticoagulation�Eliquis 2.5 mg, twice daily based on her age and renal function.
Continue carvedilol
Repeat EKG in a.m.
Monitor on telemetry
#Sepsis
Likely secondary to UTI
Continue antibiotics as per primary team
Recommend discontinuing fluids
#Peripheral vascular disease
Continue pravastatin
Rest of her chronic medical medical condition management as per the primary team.
--- NOTE | 2025-03-30 18:35 | PHA.VAN.IN ---
Assessment
- Assessment
Renal Function: SCR Appears Elevated from baseline (0.9 - 1.2)
Concomitant Antimicrobials: piperacillin/tazobactam
Plan
- Plan
Initial / Loading Dose: vanc 1500mg administered @ 1748
Maintenance Regimen: dosing by level
Monitoring: random level 03/31 0600
MRSA Screen: Ordered per protocol
Pharmacokinetics Vancomycin I
- -
Patient Age: 89
Patient Sex: Female
Vancomycin Day #: 1
Indication: Pulmonary/Respiratory
Requesting Provider: Dr. Kitchen
Pertinent Antimicrobial Allergies:
sulfamethoxazole/trimethoprim - 'kidney doctor told me not to take it'
Height / Weight:
Height 5 ft 6 in
Actual Weight 65.5 kg
- Vital Signs / Lab Results
Temp Pulse Resp BP Pulse Ox
97.6 F 98 18 113/73 100
03/30/25 16:27 03/30/25 17:54 03/30/25 17:54 03/30/25 17:24 03/30/25 17:54
Lab Results - Hematology
03/30/25
11:47
WBC 10.8
Lab Results - Chemistry
03/30/25 03/30/25
11:47 12:18
BUN Cancelled 43 H
Creatinine Cancelled 1.8 H
Estimated Creat Clear Cancelled 21
Albumin Cancelled 2.7 L
Lab Results - Urine
03/30/25
12:18
Urine Nitrite (Reflex) Negative
Leukocyte Esterase Rfl 3+ A
Urine WBC (Reflex) 60-70 A
Ur Squamous Epith Cells 0-2
Urine Bacteria (Reflex) Few A
--- NOTE | 2025-03-30 20:58 | PTCARENOTE ---
Patient received from ED. Pt AAOx3, anxious, forgetful at times. Started IVF 100/hr. IV abx. Lactic 1.2. Received pt on 3L NC. Pt difficult to get accurate pulse ox reading due to cool extremities. Pt in A-fib on the monitor HR in the 110s. L AKA.
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 Pt oriented to the unit and call alex. Call alex within reach.
[2025-03-30] MEDS: SODIUM BICARBONATE 650 MG PO (21:37)
[2025-03-30] MEDS: COREG PO ×2 (21:37→21:48)
[2025-03-30] MEDS: ELIQUIS 2.5 MG PO (21:37)
[2025-03-30] MEDS: LASIX IV (21:38)
[2025-03-30 21:43] LABS: Glucose - Point of Care 167 mg/dl (70-99)
[2025-03-30] MEDS: LANTUS SC (22:11)
--- NOTE | 2025-03-30 23:37 | PTCARENOTE ---
Patient refused HS Lantus pt states 'my blood sugar drops overnight'. Despite education pt refusing.
[2025-03-31] VITALS (14 sets, daily range): BP systolic 97–120; BP diastolic 48–78; BMI 22.3
[2025-03-31] MEDS: LASIX 40 MG IV ×2 (00:38→09:02)
[2025-03-31] MEDS: PERCOCET 5/325 1 TABLET PO ×2 (00:49→14:38)
[2025-03-31] MEDS: ZOSYN 50 IV ×4 (01:21→20:36)
[2025-03-31] MEDS: SYNTHROID 75 MCG PO (05:02)
[2025-03-31 05:28] LABS: Hematocrit 32.8 % (37.0-47.0); Hemoglobin 10.2 g/dL (12.0-16.0); Mean Corp Hgb Conc. 31.1 g/dL (33.0-37.0); Mean Corpuscular Volume 88.4 fL (81.0-99.0); Platelet Count 207 10^3/uL (130-400); Red Cell Dist. Width 14.7 % (11.5-14.5)
[2025-03-31 05:54] LABS: ALT (SGPT) 12 U/L (0-35); AST (SGOT) 12 U/L (14-36); Albumin 2.5 g/dl (3.5-5.0); Alkaline Phosphatase 104 U/L (38-126); Blood Urea Nitrogen 40 mg/dl (7-17); Calcium 7.8 mg/dl (8.4-10.2); Carbon Dioxide 22 mmol/L (22-30); Chloride 103 mmol/L (98-107); Estimated Creatinine Clearance 22 ml/min; Glucose 136 mg/dl (70-99); Potassium 3.9 mmol/L (3.5-5.1); Sodium 132 mmol/L (135-145); Total Protein 5.1 g/dl (6.3-8.2); eGFR 28.84
--- NOTE | 2025-03-31 07:49 | W.PN.UPDATE ---
Addendum entered and electronically signed by Terence Julian MD 03/31/25 12:57:
Stage 1 sacral pressure injury, POA
Original Note:
Update Note
Progress Note Update
I saw and evaluated the patient. I reviewed the resident�s note and agree with findings and plan as documented in the resident�s note.
c/o SOB after being repositioned.
Gen: remains NAD, awake and alert, appears chronically ill
Eyes: EOMI, PERRLA, no scleral icterus.
Neck: supple.
CV: remains Tachycardic, irregularly irregular, +S1/S2, no m/r/g.
Resp: dec BS in the bases
Abd: +BS, soft, NT, ND
Skin: No rashes. Right lower extremity with 1+ edema, L AKA
Neuro: CN 2-12 intact, non-focal.
Psych: Normal mood and affect.
CT brain: No evidence of acute intracranial abnormality. 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 Interval increase in paranasal sinus disease especially on the right side compared to prior CT of the head.
Extensive left-sided paranasal sinus disease appears fairly stable.
CXR: Subtle increase in interstitial markings within the mid to lower lungs, new from previous radiograph. Main differential considerations of interstitial edema and interstitial-type pneumonia
Acute hypoxemic respiratory failure:
-71% on 5L NC O2 on admission, afebrile (temp 100.2 F on admission, improved since), now weaned to 3L NC O2
-current etiology for hypoxemia is possible PNA as well as acute on chronic HFpEF (echo pending)
-stop IVFs
-cont IV Lasix, daily wts, I/Os
-cont with Zosyn/Vanco (MRSA screen pending)
-repeat CXR
Pyuria/possible UTI:
-cont Zosyn
-follow UCx
Severe sepsis:
-with acute metabolic encephalopathy
-POA a/e/b tachycardia, tachypnea, source of infection PNA +/- UTI with evidence of end organ damage of GABBY
-2L NS given on admission, cardiology advised against further maintenance IVFs
-with hypotension needs another 1L for 30cc/kg
-trend Cr, c/s renal
Afib with RVR:
-cards following
-check echo
-volume resuscitation/sepsis tx prior to additional rate controlling meds
-started on Eliquis 2.5mg BID
Other problems:
Chronic HFpEF: check echo, cont BB with holding parameters, hold lasix with GABBY
Hyponatremia, improved
h/o CVA s/pt tPA 2018
Migraines
Hypothyroidism: cont Levoxyl, TSH normal
Essential HTN: cont BB
DM2: Hold Farxiga with possible UTI. Cont basal/bolus insulin, SSI/accuchecks, check a1c
DNR as per NH records
Eliquis
IMU
Total time spent on today's encounter was 50 minutes which included time spent in counseling the patient/family regarding diagnosis and treatment plan as listed above, goals of care, and symptom management. Case was discussed with nursing staff,
specialists, and care coordinators/case management. All labs and imaging personally reviewed by me. Remainder the time spent in detailed review of previous records, lab data, imaging, and other medical provider documentation.
[2025-03-31] MEDS: NOVOLOG FLEXPEN-LOW RESISTANCE SC ×2 (08:19→14:44)
[2025-03-31 08:25] LABS: Glucose - Point of Care 108 mg/dl (70-99)
--- NOTE | 2025-03-31 08:33 | W.CON.NEPH ---
Consultation
-
Date/Time Consultation Requested: 03/31/2025 8:00 AM
Date/Time Consultation Performed: 03/31/2025 8:30 AM
Requesting Provider: Dr. Julian
Performing Provider: Dr. Lemos
Reason for Consultation: Acute kidney injury
Medical History
-
Chief Complaint: Acute kidney injury
History of Present Illness:
The patient is an 89-year-old female with a past medical history of diabetes maintained on insulin therapy. She is a history of hypertension maintained on carvedilol and has a history of chronic kidney disease stage III with a baseline creatinine
of approximately 1.2-1.4. The patient presented to the emergency room after being found unresponsive for 5 to 7 minutes. She reports symptoms of poor appetite nausea and weakness over the past several days and 1 episode of emesis during the day of
her admission. She had been found unresponsive hypoxic tachycardic and febrile. Nephrology was consulted for acute kidney injury as her creatinine was 1.8 on admission. EKG on admission was notable for atrial fibrillation with rapid ventricular
response (new Dx)
Past Medical History
CHF (HFpEF 70-75% Last Echo 2018), CVA, Hypothyroidism, IDDM and Valvular Disease
CKD stage IIIa 1.4 creatinine
Metabolic acidosis
Hypertension
History of CVA
History of hypothyroid
History of peripheral arterial disease status post AKA
Social History
Tobacco: Former Smoker
Living: Snf
Family History
Family History: Not Pertinent
Allergies / Home Medications
Allergy/AdvReac Type Severity Reaction Status Date / Time
amlodipine Allergy Unknown Verified 03/30/25 16:34
sulfamethoxazole (From Allergy 'kidney Verified 03/30/25 16:34
Bactrim) doctor
told me
not to
take it'
trimethoprim (From Bactrim) Allergy 'kidney Verified 03/30/25 16:34
doctor
told me
not to
take it'
�Medication �Instructions �Recorded �Confirmed �Type
insulin aspart U-100 100 unit/mL 6 units SC AC 08/10/16 03/30/25 History
(3 mL) subcutaneous pen (Novolog
FlexPen U-100 Insulin aspart)
sodium bicarbonate 650 mg tablet 650 mg PO BID 08/10/16 03/30/25 History
acetaminophen 325 mg tablet 650 mg PO Q4HPRN PRN mild 08/17/16 03/30/25 History
pain/fever
ferrous sulfate 325 mg (65 mg 325 mg PO MOWEFR@0800 08/17/16 03/30/25 History
iron) tablet (FeroSul)
magnesium hydroxide 400 mg/5 mL 30 ml PO HSPRN PRN constipation 08/17/16 03/30/25 History
oral suspension
pravastatin 20 mg tablet 20 mg PO WE@0800 08/17/16 03/30/25 History
carvedilol 12.5 mg tablet 25 mg PO BID 05/29/18 03/30/25 History
cholecalciferol (vitamin D3) 1,250 1,250 mcg PO MONTHLY 03/30/25 03/30/25 History
mcg (50,000 unit) capsule
dapagliflozin propanediol 5 mg 5 mg PO DAILY 03/30/25 03/30/25 History
tablet (Farxiga)
duloxetine 20 mg capsule,delayed 20 mg PO DAILY 03/30/25 03/30/25 History
release
furosemide 20 mg tablet 20 mg PO DAILY 03/30/25 03/30/25 History
insulin glargine 100 unit/mL (3 12 unit SC HS Diabetes 03/30/25 03/30/25 History
mL) subcutaneous pen (Basaglar
KwikPen U-100 Insulin)
levothyroxine 75 mcg tablet 75 mcg PO DAILY@0600 Thyroid 03/30/25 03/30/25 History
lidocaine 4 % topical cream 1 applic topical TIDPRN PRN 03/30/25 03/30/25 History
phantom limb pain
oxycodone-acetaminophen 5 mg-325 1 tab PO Q4HPRN PRN moderate pain; 03/30/25 03/30/25 History
mg tablet use lidocaine first
Review of Systems
-
History Source: Patient
All other systems: Negative unless noted
Constitutional: Weight Gain and Fatigue
Respiratory: Trouble Breathing
Cardiac: No Symptoms
Abdomen/GI: Nausea
: No Symptoms
Musculoskeletal: Edema
Physical Exam
Vital Signs
Vital Signs
Temp Pulse Resp BP Pulse Ox
97.2 F 97 21 120/69 100
03/31/25 07:55 03/31/25 06:00 03/31/25 06:00 03/31/25 06:00 03/31/25 05:19
Lab Results
03/31/25 05:00
03/31/25 05:00
WBC 9.5 10^3/uL (4.8-10.8) 03/31/25 05:00
RBC 3.71 10^6/uL (4.20-5.40) L 03/31/25 05:00
Hgb 10.2 g/dL (12.0-16.0) L 03/31/25 05:00
Hct 32.8 % (37.0-47.0) L 03/31/25 05:00
Plt Count 207 10^3/uL (130-400) 03/31/25 05:00
Sodium 132 mmol/L (135-145) L 03/31/25 05:00
Potassium 3.9 mmol/L (3.5-5.1) 03/31/25 05:00
Chloride 103 mmol/L (98-107) 03/31/25 05:00
Carbon Dioxide 22 mmol/L (22-30) 03/31/25 05:00
BUN 40 mg/dl (7-17) H 03/31/25 05:00
Creatinine 1.7 mg/dL (0.6-1.0) H 03/31/25 05:00
eGFR 28.84 03/31/25 05:00
Glucose 136 mg/dl (70-99) H 03/31/25 05:00
Calcium 7.8 mg/dl (8.4-10.2) L 03/31/25 05:00
Idw-V-Skmewlqbvgf Pept 02243 pg/ml 03/30/25 12:18
Albumin 2.5 g/dl (3.5-5.0) L 03/31/25 05:00
Physical Exam
General: AOx3, Nontoxic , NAD
HEENT: PERRL, EOMI, Anicteric, Conjunctivae Clear, Ear/Nose Intact, Hearing Normal, Oropharynx Clear/Moist, Dentition poor, Facial Symmetry, Neck Supple, Neck: Trachea Midline, No JVD and No Thyromegaly, no Bruits
Respiratory: Clear to auscultation bilaterally with normal lung excursion
Cardiac: S1/S2 and Regular Rate/Rhythm
Breast: Deferred by me
Abdomen: Soft, Nontender, Nondistended, Normal Bowel Sounds and No Hepatosplenomegaly
Rectal: Deferred by Provider
Genito-urinary: No Costovertebral Tenderness
Extremities: No Clubbing, No Cyanosis , left AKA, right lower extremity with pitting edema to knee
Skin: No Rash or open lesions
Neuro: Nonfocal/Grossly Intact, CN II-XII (Intact) and Strength (Musculoskeletal exam 5 out of 5 both upper and lower extremities), neurosensory loss from knee down on right lower extremity
Hematologic/Lymphatic: No Cervical Lymphadenopathy, No Submandibular Lymphadenopathy and No Supraclavicular Lymphadenopathy
Psych: Mood/afflect pleasant, Insight/judgement good and Appropriate
Vascular: plus 1 pedal and radial pulses
Data Reviewed
-
Radiology: Image Personally Visualized and interpreted (Chest x-ray personally reviewed no evidence of infiltrate notable for hyperinflated lung molina no congestive heart failure pattern appreciated)
CT Scan: Report Reviewed by me (CT of head report reviewed: No evidence of acute intracranial abnormality)
Labs: Labs Reviewed by me (BMP CBC)
Old Records: Reviewed (Reviewed previous basic metabolic panel in EMR with creatinine noted to be 1.4 03/24/2025)
Assessment/Plan
-
Impression:
GABBY
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
Syncope/altered mental status
New onset AFIB
History of peripheral vascular disease
Diabetes
Hypothyroidism
Left AKA
Chronic metabolic acidosis
Plan:
GABBY:
-Possibly prerenally mediated stimulus prior to admission with hemodynamic instability
-Urinalysis reviewed noted 4+ blood 3+ albumin 2+ glucose 3+ leukocyte oksana: maybe related to UTI
-Hold SGLT2 inhibitor in setting of acute kidney injury
-Zosyn renally dosed
-Kidney function improved and remains nonoliguric
- Has remained hemodynamically stable
-Maintain sodium bicarbonate tablets for chronic metabolic acidosis
- Maintain accurate I's and O's check postvoid bladder scan for possible urinary retention
- Cardiology currently diuresing with IV lasix
[2025-03-31] MEDS: COREG PO ×2 (09:01→10:14)
[2025-03-31] MEDS: FEOSOL 325 MG PO (09:01)
[2025-03-31] MEDS: SODIUM BICARBONATE 650 MG PO ×2 (09:01→20:37)
[2025-03-31] MEDS: CYMBALTA DELAYED RELEASE 20 MG PO (09:01)
[2025-03-31] MEDS: ELIQUIS 2.5 MG PO ×2 (09:02→20:37)
[2025-03-31] MEDS: NSS 1000 IV (09:03)
[2025-03-31] MEDS: PRAVACHOL 20 MG PO (09:15)
[2025-03-31] MEDS: NOVOLOG FLEXPEN 6 UNITS SC ×2 (10:16→18:51)
--- NOTE | 2025-03-31 11:27 | W.CON.PAL ---
Consultation
-
Date/Time Consultation Requested: 03/31
Date/Time Consultation Performed: 04/01
Performing Provider: Bibi Oglesby
Reason for Consult: Goals of Care Discussion
Reason for Admission
Illness Course/HPI
89 year old F with history of PAD, DM, CVA admitted from [facility] for hypoxia and AMS.
Upon admission was hypoxic to the 70s. Recovered on 6L 02, now on 3L. Also with tachycardia and fever. Started on ABX for UTI vs PNA. Cultures pending. Awaiting echo, getting lasix for possible fluid overload.
Seen at bedside with no family present. Reports this being her first hospitalization since 2018 and overall she has been doing well. Has been at [facility] for about 9 years, mostly in bed but can get out to the chair. This is due to leg weakness and
history of polio. No skin breakdown. She wants to get out of the hospital but knows theres more testing. We discussed her code status and she reports DNR/DNI but still very much wants full medical care at this time. She is not ready to and feels
like she has a good QOL at the moment. Her closest family is her vaibhav Mccoy who is very much involved in her care. States she has a living will, she believes he is listed as her decision maker which is who she would want.
More testing pending, but goals are restorative at this time and has overall been doing well at [facility] with no medical issues.
Objective Data
-
Objective Data:
Vital Signs
Temp Pulse Resp BP Pulse Ox
97.2 F 97 21 101/62 100
03/31/25 07:55 03/31/25 06:00 03/31/25 06:00 03/31/25 10:14 03/31/25 05:19
Laboratory Results
03/31/25 05:00
03/31/25 05:00
Total Protein 5.1 g/dl (6.3-8.2) L 03/31/25 05:00
Albumin 2.5 g/dl (3.5-5.0) L 03/31/25 05:00
Urine Color Yellow 03/30/25 12:18
Urine Clarity Cloudy (Clear) 03/30/25 12:18
Urine pH 5.0 (5.0-9.0) 03/30/25 12:18
Ur Specific [place] 1.025 (<1.030) 03/30/25 12:18
Urine Ketones Negative (Negative) 03/30/25 12:18
Urine Bilirubin Negative (Negative) 03/30/25 12:18
Palliative Performance Scale
Palliative Performance Scale:
PPS Level Ambulation Activity & Evidence of Disease Self Care Intake Conscious Level
100% Full Normal Activity & Work; Full Intake Full
No Evidence of Disease
90% Full Normal Activity & Work; Full Normal Full
Some Evidence of Disease
80% Full Normal Activity with Effort Full Normal or Full
Some Evidence of Disease Reduced
70% Reduced Unable Normal Job/Work Full Normal or Full
Significant Disease Reduced
60% Reduced Unable Hobby/Housework Occasional Normal or Full or Confusion
Significant Disease Assistance Reduced
50% Mainly Sit/Lie Unable to do Any Work Considerable Normal or Full or Confusion
Extensive Disease Assistance Req'd Reduced
40% Mainly in Bed Unable to do Most Activity Mainly Assistance Normal or Full or Drowsy;
Extensive Disease Reduced +/- Confusion
30% Totally Bed Unable to do Any Activity Total Care Normal or Full or Drowsy;
Bound Extensive Disease Reduced +/- Confusion
20% Totally Bed Bound Unable to do Any Activity Total Care Minimal to Full or Drowsy;
Extensive Disease Sips +/- Confusion
10% Totally Bed Bound Unable to do Any Activity Total Care Mouth Care Drowsy or Coma;
Extensive Disease Only +/- Confusion
0%
PPS Score Level:
Physical Exam
-
General: No Apparent Distress and Appears Chronically Ill
HEENT: Normocephalic
Respiratory: Clear to Auscultation
Peripheral Vascular: No Edema
Skin: Warm
Neuro: AO x 3
Assessment / Plan
-
Assessment/Plan:
89 year old F with DM, PAD, CVA admitted with sepsis from PNA vs UTI
- goals are restorative at this time
- has living will - is DNR/DNI but with full medical treatment
- [facility] resident at [facility] so unable to be seen as an outpatient for PC service
Care Reviewed
Data Reviewed
Medical Tests: I reviewed
Reviewed with: Patient and Physician
--- NOTE | 2025-03-31 11:42 | PN.CDI ---
CDI
- -
CDI:
Physician Documentation Request
Admit Date: 03/30/25 16:33
Dear Doctor Eliel,
Patient admitted with severe sepsis.
03/30 Nursing skin assessment, 'Stage 1 sacral pressure injury, POA.'
Physician documentation of the type and location of wounds is required for compliant documentation. Based on the above clinical findings and your assessment, please provide the following in your progress note:
Type (etiology) of ulcer/wound:
- Pressure (decubitus) ulcer
- Other
- Unable to determine
For a pressure ulcer, please also include the stage* of the ulcer:
- Stage 1 - Skin intact, non-blanchable redness
- Stage 2 - Partial thickness loss of dermis, includes intact or open blister
- Stage 3 - Full thickness tissue not including bone, tendon or muscle
- Stage 4 - Full thickness tissue loss, including exposed bone, tendon or muscle
- Unstageable - Full thickness loss in which the base of the ulcer is covered by slough (yellow, brenner, kellogg, green or brown) and/or eschar (brenner, brown or black) in the wound bed.
- Unable to determine
Use of terms such as suspected, likely, concern for, or probable (associated with a specific diagnosis that is being evaluated, monitored, or treated as if it exists) are acceptable and can be coded in the inpatient setting, when documented at the
time of discharge.
Thank you,
Rylee HARMON,RN,CCDS
CDI Specialist
Available via tiger text
Please use your independent medical judgment in providing your response.
*Source: National Pressure Ulcer Advisory Panel (NPUAP)
--- NOTE | 2025-03-31 12:56 | W.PN.HOSP.TC ---
Today's Communication/Plan
-
Continue present line of care
Assessment / Plan
Assessment / Plan
CT Head W/o Iv Contrast (03/30/2025)
No evidence of acute intracranial abnormality.
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 Interval increase in paranasal sinus disease especially on the right side compared to prior CT of the head. Extensive left-sided paranasal sinus disease appears fairly
stable.
US Periph Venous LOWER Ext RT (03/30/2025)
No sonographic evidence for right lower extremity deep venous thrombosis.
CR Chest Portable (03/30/2025)
Subtle increase in interstitial markings within the mid to lower lungs, new from previous radiograph.
CR Chest Portable (03/31/2025)
Slightly prominent interstitial pulmonary markings with some improvement from prior.
#Acute hypoxic respiratory failure
-Head CT showed no acute ischemic changes
-Patient was found to be hypoxic saturating at 70s, with increased HR, RR, Temp
-Currently saturating 100% 5 L of oxygen via nasal cannula
-Chest x-ray did not show any focal pneumonia,
-However did show increased interstitial marking
-Hypoxia likely due to pneumonia as well as chronic HFpEF
-Continue oxygen therapy with a goal of >90%
-DC IVF, Ct IV Lasix, daily wts, I/Os
-Ct Abx
-Palliative care consult noted
# Urinary tract infection
-Urine culture when ready
-Holding Farxiga
# Severe sepsis
- Severe sepsis with metabolic encephalopathy
- The white count is normal, with relative neutrophilia/left shift
- Elevated HR, RR, Temp, on presentation
- Likely pneumonia,+/- urinary tract infection
-Limit IVF
- ABX IV Zosyn and Vanco
- Blood culture x 2 pending
- Lactic acid normal
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
-Cr 1.8 creatinine increased from 1.4 (03/24/2025)
-Hold furosemide resume with creatinine at baseline
-Continue to monitor BMP
-Sodium bicarbonate for metabolic acidosis
-Repeat CXR, some improvement
# Heart failure with preserved ejection fraction
- Last echo done 2018 showed EF of 70 to 75%
-BNP 23,700, ( 03/24/2025- 17,300)
-ECHO
- BBlockers and Lasix resumed
-Farxiga Still on hold
- Daily weight
-I/Os
# Cardiac arrhythmias
-EKG done in the ED shows new A-fib with RVR
-CHADVASC score 9
-Start Eliquis 2.5mg PO bid
# Insulin-dependent diabetes mellitus
-Fair diabetes control BG 204, 03/24/2025 A1c 7.2
-Continue Insulin glargine 12iu HS, Aspart 6 iu
- Hold Farxiga
- Low resistant insulin sliding scale
- Diabetic diet/glucose monitoring
#Right LE swelling
- In the setting of DM/Neuropathy
-Do peripheral vascular ultrasound
#Hyponatremia: trend Na with IVFs
#h/o CVA s/pt tPA 2017, continue pravastatin
#Hypothyroidism: cont Levoxyl, check TSH
# H/O BKA: Oxycodone, lidocaine for phantom pain
# Chronic ambulatory dysfunction: PT/ OT
#Peripheral neuropathy; duloxetine,
#Migraines
#Elderly patient with multiple co-morbidities;
Anticipated Discharge: > 48 hours
Subjective/Interval History
-
Date of Service: March 31, 2025
Patient states that she feels better nausea subsiding normal episode of vomiting she is short of breath with mobility [moving around in bed]
Objective Data
-
Labs:
Laboratory Results
03/31/25
05:00
WBC 9.5
Hgb 10.2 L
Hct 32.8 L
Plt Count 207
Sodium 132 L
Potassium 3.9
Chloride 103
Carbon Dioxide 22
BUN 40 H
Creatinine 1.7 H
Glucose 136 H
Calcium 7.8 L
Total Bilirubin 0.8
AST 12 L
ALT 12
Alkaline Phosphatase 104
Vital Signs:
Vital Signs
Temp Pulse Resp BP Pulse Ox
97.2 F 97 21 101/62 100
03/31/25 07:55 03/31/25 06:00 03/31/25 06:00 03/31/25 10:14 03/31/25 05:19
I&O
03/30/25 03/31/25 04/01/25
06:59 06:59 06:59
Intake Total 280 / 280
Balance 280 / 280
Review of Systems
-
History Source: Patient
Constitutional: Reports Weakness
EENT: Reports Hearing Loss
Respiratory: Reports Cough (Occasional mild cough)
Cardiac: Reports No Symptoms
Skin: Reports Other (Friable skin)
Neuro: Reports Other
Physical Exam
-
HEENT: Normocephalic
Respiratory: Clear to Auscultation
Cardiac: S1/S2 and Irregular Rhythm
GI: Soft, Nontender and Nondistended
Musculoskeletal: Other (Left lower extremity above-knee amputation right lower extremity right first toe amputated venous congestion shiny skin loss of head loss of sensation on the distal 2 third trace pedal edema)
Skin: Warm, Dry and Other (Frail skin with bruising)
Psych: Other (Patient is a poor historian, and does not have full knowledge of her medical condition)
--- NOTE | 2025-03-31 13:00 | PHA.VAN.FU ---
Vancomycin Assessment / Plan
- Assessment
Renal Function: Stable
WBC's are: WNL
In the past 24 hrs, patient has been: Afebrile
Concomitant Antimicrobials: piperacillin/tazobactam
- Assessment - Therapeutic Drug Monitoring
Random Level: 16.3 - drawn ~11H after 1500mg loading dose
- Dosing Plan
Dosing by Level: Re-dose today (Vanc 500mg)
- Monitoring Plan
Random Level: 04/01 600
- Follow Up
Pharmacy will continue to follow.
Vancomycin Follow UP
- -
Patient Age: 89
Patient Sex: Female
Vancomycin Day #: 2
Indication: Pulmonary/Respiratory
Requesting Provider: Dr. Kitchen
Pertinent Antimicrobial Allergies:
sulfamethoxazole/trimethoprim - 'kidney doctor told me not to take it'
Height / Weight:
Height 5 ft 6 in
Actual Weight 62.5 kg
- Vital Signs / Lab Results
Temp Pulse Resp BP Pulse Ox
97.2 F 97 21 101/62 100
03/31/25 07:55 03/31/25 06:00 03/31/25 06:00 03/31/25 10:14 03/31/25 05:19
Lab Results - Hematology
03/30/25 03/31/25
11:47 05:00
WBC 10.8 9.5
Lab Results - Chemistry
03/30/25 03/30/25 03/31/25
11:47 12:18 05:00
BUN Cancelled 43 H 40 H
Creatinine Cancelled 1.8 H 1.7 H
Estimated Creat Clear Cancelled
Albumin Cancelled 2.7 L 2.5 L
03/30/25 03/31/25 03/31/25
21:55 00:22 04:22
Lactic Acid 1.2 Cancelled Cancelled
03/31/25
08:22
Lactic Acid Cancelled
Microbiology Results
03/30/25 21:55 Nasal Screen MRSA (PCR) - Final
Nose Staph aureus MRSA
03/30/25 12:18 Urine Culture - Final
Urine NO GROWTH
Therapeutic Drug Monitoring
Random Vancomycin 16.3 ug/ml 03/31/25 05:00
--- NOTE | 2025-03-31 13:32 | W.PN.CD ---
Addendum entered and electronically signed by Truman Cornelius MD 03/31/25 16:34:
I saw and evaluated the patient with the resident. I was present for the whittaker portions of the history and exam and personally performed the MDM, including reviewing labs, assessing data,, and directing management plan. I agree with the residents note
with my comments/adjustments below:
She is feeling better today, pretty comfortable but hot. Breathing subjectively better. Nurse just able to come down on oxygen to 3 L.
On exam, she has irregularly irregular rate and rhythm, normal S1-S2, lungs are clear to auscultation. Right lower extremity is cool but edema is somewhat improved from yesterday. Left AKA soft
Acute heart failure with preserved EF: EF 55 to 60%. Mildly dilated RV with reduced systolic function, severe tricuspid regurgitation PASP 42 mmHg, continue IV diuresis. This requires intensive evaluation.
GABBY: Monitor creatinine with diuresis. Slightly improved from yesterday.
AF with RVR: rate resonable, AF not new it seems, continue bb and Eliquis
UTI: Per medicine
PAD: On statin.Right leg is cool I asked nurse to check Doppler pulses. Although the patient reports she has not had pulses in ages toes seem to support this statement
Original Note:
Today's Communication / Plan
-
Continue diuresing with IV Lasix
Continue carvedilol
Continue Eliquis
Monitor telemetry
Update echo
Strict monitoring of I/os, electrolytes and weights.
Impression / Plan
-
Impression
89-year-old female with CHF of unknown EF, chronic anemia, history of CVA, hypertension, hyperlipidemia, IDDM, PVD, hypothyroidism presenting to the ER with altered mental status and found to be septic secondary to UTI.
Plan
#CHF with unknown EF
Elevated BNP�23,700
Troponins negative
Latest echo in 2018 with EF 70�75%, stage I diastolic dysfunction.
Update echo
EKG�A-fib with RVR
Repeat Chest x-ray with improvement in the interstitial pulmonary markings. Clear lungs on exam
GABBY at presentation, Creatinine 1.7 < 1.8
Patient already received IV fluid bolus in the ER.
Discontinue fluids
Patient remains non oliguric, with good urine output.
Hemodynamically stable
Responding well to Lasix,Will Continue diuresing with IV Lasix 40 mg twice daily.
Monitor electrolytes and renal function.
Monitor I/O's, weights.
Monitor respiratory status. Oxygen requirement has increased from 3 L to 5 L, wean as able.
Continue carvedilol , Farxiga discontinued due to UTI/ in the setting of GABBY
Patient requires intensive monitoring with daily clinical exams, labs, medication adjustments depending on her clinical progression.
#New onset A-fib with RVR
Contributing factors-sepsis vs heart failure
EKG - A-fib with RVR
Pablo Vasc score of 9
Will need anticoagulation�Eliquis 2.5 mg, twice daily based on her age and renal function.
Rates in 90s�110s
Continue carvedilol
Monitor on telemetry
Reviewed progress notes from [facility] associates, which mentioned history of A-fib. But patient was not on DOAC as per the note.
#Sepsis
Likely secondary to UTI
Continue antibiotics as per primary team
#Peripheral vascular disease
Continue pravastatin
Rest of her chronic medical medical condition management as per the primary team.
Physical Exam
Vital Signs/Labs
Vital Signs
Temp Pulse Resp BP Pulse Ox
97.2 F 97 21 101/62 100
03/31/25 07:55 03/31/25 06:00 03/31/25 06:00 03/31/25 10:14 03/31/25 05:19
03/30/25 03/31/25 04/01/25
06:59 06:59 06:59
Actual Weight 137 lb 12.623 oz
03/31/25 05:00
03/31/25 05:00
03/30/25 03/30/25
11:47 12:18
Eru-X-Ktnrljypixm Pept Cancelled
LAB Results
03/30/25 03/30/25
11:47 12:18
Troponin I Cancelled 0.024
Physical Exam
Constitutional: No acute distress
EENT: Other (On 5 L nasal cannula)
Cardiovascular: Rhythm/rate is irregular, JVD present, S1S2 is normal and Other (Right lower extremity edema up to the thigh)
Respiratory: Lungs clear to auscul.
GI: Soft, Non tender and Normal bowel sounds
Neuro/Psych: Alert, Oriented and AO x 3
Data Reviewed
-
Date of Service: March 31, 2025
EKG: Tracing Personally Visualized and interpreted
X-Ray/CT/US/MRI/NUC/PET: Image Personally Visualized and interpreted and Report Reviewed by me
Old Records: Reviewed
--- NOTE | 2025-03-31 14:09 | CM ---
DM, s/p CVA/CHF, L AKA: Initial assessment completed with patient and medical records. Patient resides at [facility] for the past 9 years. She requires assistance in ADL's. She said she does not ambulate and stays the day in bed due to chronic
diarrhea and the need to be changed. She does get OOB for showers via W/CH with staff assistance. Discharge POC: Return to [facility] for resumption of LTC.
[2025-03-31] MEDS: NOVOLOG FLEXPEN SC (14:28)
[2025-03-31 14:46] LABS: Glucose - Point of Care 167 mg/dl (70-99)
[2025-03-31] MEDS: VANCOCIN HCL 500 MG 100 IV (14:48)
[2025-03-31] MEDS: LASIX IV (17:18)
[2025-03-31 18:12] LABS: Glucose - Point of Care 218 mg/dl (70-99)
[2025-03-31] MEDS: NOVOLOG FLEXPEN-LOW RESISTANCE 2 UNITS SC (18:51)
[2025-03-31] MEDS: COREG 25 MG PO (20:37)
[2025-03-31 21:51] LABS: Glucose - Point of Care 169 mg/dl (70-99)
[2025-03-31] MEDS: LANTUS SC (22:27)
[2025-04-01] VITALS (18 sets, daily range): BP systolic 91–121; BP diastolic 45–77; BMI 23.0
--- NOTE | 2025-04-01 00:46 | PTCARENOTE ---
Patient AAOx3, forgetful at times, anxious, [place]. Pt states she is feeling 'better' tonight. A-fib on the monitor HR in the 90s. L AKA. R pulses absent with a Doppler, cool to touch. Pt has little to no sensation. Pt weaned to 2L NC SpO2 98%.
Grossly incontinent of urine. Moisture barrier generously applied to perineum. IV abx cont. Pt refused HS Lantus, see MAR. Pt tolerating frequent turning and repositioning, call alex within reach.
[2025-04-01] MEDS: ZOSYN 50 IV ×2 (01:14→09:05)
[2025-04-01] MEDS: SYNTHROID 75 MCG PO (04:43)
[2025-04-01 04:49] LABS: Hematocrit 33.2 % (37.0-47.0); Hemoglobin 10.4 g/dL (12.0-16.0); Mean Corp Hgb Conc. 31.3 g/dL (33.0-37.0); Mean Corpuscular Volume 88.1 fL (81.0-99.0); Platelet Count 231 10^3/uL (130-400); Red Cell Dist. Width 14.8 % (11.5-14.5)
[2025-04-01 05:15] LABS: Blood Urea Nitrogen 46 mg/dl (7-17); Calcium 7.7 mg/dl (8.4-10.2); Carbon Dioxide 23 mmol/L (22-30); Chloride 102 mmol/L (98-107); Estimated Creatinine Clearance 21 ml/min; Glucose 129 mg/dl (70-99); Potassium 4.1 mmol/L (3.5-5.1); Sodium 132 mmol/L (135-145); eGFR 26.93
--- NOTE | 2025-04-01 06:09 | PTCARENOTE ---
Rectal temp 96.4. Covered patient with multiple warm blankets. Rectal temp to 96.6. GRAZYNA Mahan made aware, new orders for polly henderson.
--- NOTE | 2025-04-01 08:12 | PHA.VAN.FU ---
Vancomycin Assessment / Plan
- Assessment
Renal Function: Stable
WBC's are: Trending Up
Concomitant Antimicrobials: piperacillin/tazobactam
- Assessment - Therapeutic Drug Monitoring
Random Level: 15.6 - drawn ~13.5H after previous dose of 500mg
- Dosing Plan
Dosing by Level: Re-dose today (Vanc 500mg)
- Monitoring Plan
Random Level: 04/02 600
- Follow Up
Pharmacy will continue to follow.
Vancomycin Follow UP
- -
Patient Age: 89
Patient Sex: Female
Vancomycin Day #: 3
Indication: Pulmonary/Respiratory
Requesting Provider: Dr. Kitchen
Pertinent Antimicrobial Allergies:
sulfamethoxazole/trimethoprim - 'kidney doctor told me not to take it'
Height / Weight:
Height 5 ft 6 in
Actual Weight 64.5 kg
- Vital Signs / Lab Results
Temp Pulse Resp BP Pulse Ox
97.6 F 108 14 100/45 98
04/01/25 07:21 04/01/25 06:00 04/01/25 06:00 04/01/25 06:00 04/01/25 00:43
Lab Results - Hematology
03/30/25 03/31/25 04/01/25
11:47 05:00 04:33
WBC 10.8 9.5 10.9 H
Lab Results - Chemistry
03/30/25 03/30/25 03/31/25
11:47 12:18 05:00
BUN Cancelled 43 H 40 H
Creatinine Cancelled 1.8 H 1.7 H
Estimated Creat Clear Cancelled 21 22
Albumin Cancelled 2.7 L 2.5 L
04/01/25
04:33
BUN 46 H
Creatinine 1.8 H
Estimated Creat Clear 21
Albumin
03/30/25 03/31/25 03/31/25
21:55 00:22 04:22
Lactic Acid 1.2 Cancelled Cancelled
03/31/25
08:22
Lactic Acid Cancelled
Microbiology Results
03/30/25 21:55 Blood Culture - Preliminary
Blood/Venous No Growth in 24 hours- Final report to follow
03/30/25 21:55 Blood Culture - Preliminary
Blood/Venous No Growth in 24 hours- Final report to follow
03/30/25 21:55 Nasal Screen MRSA (PCR) - Final
Nose Staph aureus MRSA
03/30/25 12:18 Urine Culture - Final
Urine NO GROWTH
Therapeutic Drug Monitoring
Random Vancomycin 15.6 ug/ml 04/01/25 04:33
--- NOTE | 2025-04-01 08:29 | W.PN.CD ---
Addendum entered and electronically signed by Jer Roldan MD 04/01/25 13:50:
Given low blood pressure we will switch carvedilol to metoprolol XL 50 mg twice daily for now we will continue to monitor heart rates on telemetry
Original Note:
Today's Communication / Plan
-
Cont IV diuresis today consider PO tomorrow
Monitor HRs on tele
Impression / Plan
-
Impression
89-year-old female with CHF of unknown EF, chronic anemia, history of CVA, hypertension, hyperlipidemia, IDDM, PVD, hypothyroidism presenting to the ER with altered mental status and found to be septic secondary to UTI.
Plan
#HFpEF Echo 03/31 shows normal function severe TR Estimated PASP of 42 mmHg.
- weight 142 lbs today up from yesterday at 137? --> Bed weights but unable to stand dry weight around 135
-Elevated BNP�23,700
-Troponins negative
-Continue IV diuresis
-SGLT2i stopped given UTI
#New onset A-fib with RVR
Contributing factors-sepsis vs heart failure
EKG - A-fib with RVR
Pablo Vasc score of 9
Will need anticoagulation�Eliquis 2.5 mg, twice daily based on her age and renal function.
Rates for the most part in 90s�110s
Continue carvedilol
Monitor on telemetry
Reviewed progress notes from [facility], which mentioned history of A-fib. But patient was not on DOAC as per the note.
#Sepsis
Likely secondary to UTI
Continue antibiotics as per primary team
#Peripheral vascular disease
Continue pravastatin
right leg is very cold ABIs ordered consider VS consult
Subjective; she is essentially bed bound and nonambulatory; her leg appears improved in size
Physical Exam
Vital Signs/Labs
Vital Signs
Temp Pulse Resp BP Pulse Ox
97.6 F 108 14 100/45 98
04/01/25 07:21 04/01/25 06:00 04/01/25 06:00 04/01/25 06:00 04/01/25 00:43
03/31/25 04/01/25 04/02/25
06:59 06:59 06:59
Actual Weight 137 lb 12.623 oz 142 lb 3.17 oz
04/01/25 04:33
04/01/25 04:33
03/30/25 03/30/25
11:47 12:18
Dtt-Z-Fnbxkdkddbk Pept Cancelled [id number]
LAB Results
03/30/25 03/30/25
11:47 12:18
Troponin I Cancelled 0.024
Physical Exam
Constitutional: No acute distress
EENT: Anicteric
Cardiovascular: Rhythm/rate is irregular and Pedal edema present
Respiratory: Respiratory effort normal and Lungs clear to auscul.
GI: Soft
Neuro/Psych: Alert and Oriented
Data Reviewed
-
Date of Service: April 01, 2025
EKG: Tracing Personally Visualized and interpreted (af)
Echo: Report Reviewed by me
Labs: Labs Reviewed by me
[2025-04-01 08:35] LABS: Glucose - Point of Care 151 mg/dl (70-99)
[2025-04-01] MEDS: NOVOLOG FLEXPEN SC ×2 (08:35→17:44)
[2025-04-01] MEDS: COREG PO (08:35)
[2025-04-01] MEDS: SODIUM BICARBONATE 650 MG PO ×2 (08:36→21:20)
[2025-04-01] MEDS: ELIQUIS 2.5 MG PO ×2 (08:36→21:20)
[2025-04-01] MEDS: LASIX 40 MG IV (08:36)
[2025-04-01] MEDS: CYMBALTA DELAYED RELEASE 20 MG PO (08:36)
[2025-04-01] MEDS: NOVOLOG FLEXPEN-LOW RESISTANCE SC ×2 (09:12→17:44)
[2025-04-01] MEDS: PERCOCET 5/325 1 TABLET PO (09:33)
--- NOTE | 2025-04-01 09:36 | W.PN.NEPH.PH ---
Today's Communication / Plan
-
Follow BMP
Check postvoid bladder
Blood pressure remains low and likely potentiating ongoing renal dysfunction
Assessment/Plan
-
Impression:
GABBY
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
Syncope/altered mental status
New onset AFIB
History of peripheral vascular disease
Diabetes
Hypothyroidism
Left AKA
Chronic metabolic acidosis
Hyponatremia
Plan:
GABBY:
-likely prerenally mediated stimulus prior to admission with hemodynamic instability
-Urinalysis reviewed noted 4+ blood 3+ albumin 2+ glucose 3+ leukocyte oksana: maybe related to UTI
-Holding SGLT2 inhibitor in setting of acute kidney injury
-Zosyn renally dosed
-Kidney function remains abnormal at 1.8 urine output not recorded,
-Hemodynamically labile
-Check postvoid bladder scan
-Maintain sodium bicarbonate tablets for chronic metabolic acidosis
- Maintain accurate I's and O's check postvoid bladder scan for possible urinary retention
- Cardiology currently diuresing with IV lasix
-
-
Date of Service: April 01, 2025
CC / HPI / ROS
-
Chief Complaint:
Acute kidney injury
History of Present Illness:
Hemodynamically labile
Creatinine unchanged at 1.8
Review of Systems:
Urine output not recorded
Weights
No fever
Labs
-
Labs:
WBC 10.9 10^3/uL (4.8-10.8) H 04/01/25 04:33
RBC 3.77 10^6/uL (4.20-5.40) L 04/01/25 04:33
Hgb 10.4 g/dL (12.0-16.0) L 04/01/25 04:33
Hct 33.2 % (37.0-47.0) L 04/01/25 04:33
Plt Count 231 10^3/uL (130-400) 04/01/25 04:33
Sodium 132 mmol/L (135-145) L 04/01/25 04:33
Potassium 4.1 mmol/L (3.5-5.1) 04/01/25 04:33
Chloride 102 mmol/L (98-107) 04/01/25 04:33
Carbon Dioxide 23 mmol/L (22-30) 04/01/25 04:33
BUN 46 mg/dl (7-17) H 04/01/25 04:33
Creatinine 1.8 mg/dL (0.6-1.0) H 04/01/25 04:33
eGFR 26.93 04/01/25 04:33
Glucose 129 mg/dl (70-99) H 04/01/25 04:33
Calcium 7.7 mg/dl (8.4-10.2) L 04/01/25 04:33
Gzb-W-Oxlmxxrfapx Pept 36055 pg/ml 03/30/25 12:18
Albumin 2.5 g/dl (3.5-5.0) L 03/31/25 05:00
Physical Exam
-
Vital Signs:
Vital Signs
Temp Pulse Resp BP Pulse Ox
97.6 F 108 14 95/77 98
04/01/25 07:21 04/01/25 06:00 04/01/25 06:00 04/01/25 08:36 04/01/25 00:43
Cardiovascular:: Regular rate and rhythm
Respiratory:: Bilateral: Coarse
Lung Excursion:: Normal
Abdomen:: Nontender and Soft
Bowel Sounds:: Normal
Extremity Edema:: +1: Right: and None: Left: (left AKA)
Ruby Catheter: No
[2025-04-01] MEDS: VANCOCIN HCL 500 MG 100 IV (10:34)
--- NOTE | 2025-04-01 11:17 | W.PN.HOSP.TC ---
Today's Communication/Plan
-
See above
Assessment / Plan
Assessment / Plan
CT Head W/o Iv Contrast (03/30/2025)
No evidence of acute intracranial abnormality.
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 Interval increase in paranasal sinus disease especially on the right side compared to prior CT of the head. Extensive left-sided paranasal sinus disease appears fairly
stable.
US Periph Venous LOWER Ext RT (03/30/2025)
No sonographic evidence for right lower extremity deep venous thrombosis.
CR Chest Portable (03/30/2025)
Subtle increase in interstitial markings within the mid to lower lungs, new from previous radiograph.
CR Chest Portable (03/31/2025)
Slightly prominent interstitial pulmonary markings with some improvement from prior.
ECHO (04/01/2025)
1. Left ventricular cavity size is 3.00 cm which is decreased.
2. Normal left ventricular function.
3. Ejection fraction is 55-60% by visual assesment.
4. Right ventricular cavity size cavity is mildly dilated.
5. Right ventricular systolic function is mildly decreased.
6. Severely dilated left atrium left atrium.
7. Moderately dilated right atrium.
8. Severe tricuspid regurgitation.
9. Mild pulmonary hypertension. Estimated pulmonary artery pressure of 42 mmHg assuming a right atrial pressure of 8 mmHg.
10. Compared to a prior transthoracic echocardiogram study from 05/30/2018 The right ventricle appears dilated with mildly impaired function, tricuspid valve regurgitation is now severe and the IVC is dilated without inspiratory collapse. The left
atrium is now severely dilated. The right atrium is now moderately dilated.
#Acute hypoxic respiratory failure
-Head CT showed no acute ischemic changes
-Patient was found to be hypoxic saturating at 70s, with increased HR, RR, Temp
-Currently saturating 98% 3 L of oxygen via nasal cannula
-Chest x-ray did not show any focal pneumonia,
-In light of Negative cultures and ECHO
-Presentation due to HF (RHF)/
-Continue oxygen therapy with a goal of >90%
-DC IVF, Ct IV Lasix, daily wts, I/Os
-Palliative care consult noted
# Urinary tract infection
-Urine and blood culture negative
-DC Abx
-Holding Farxiga
# Severe sepsis
- In light of - Lactic acid normal, recent UA and Blood culture negative and Echo with RHF
-Sepsis is less likely
- The white count is normal, with relative neutrophilia/left shift
- Elevated HR, RR, Temp, on presentation
- ABX IV Zosyn and Vanco discontinued
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
-Cr 1.8 creatinine increased from 1.4 (03/24/2025)
-Hold furosemide resume with creatinine at baseline
-Continue to monitor BMP
-Sodium bicarbonate for metabolic acidosis
-Repeat CXR, some improvement
# Heart failure with preserved ejection fraction
-Echo done yesterday
-BNP 23,700, ( 03/24/2025- 17,300)
- BBlockers and Lasix resumed
-Farxiga Still on hold
- Daily weight
-I/Os
# Cardiac arrhythmias
-EKG done in the ED shows new A-fib with RVR
-CHADVASC score 9
-Start Eliquis 2.5mg PO bid
# Insulin-dependent diabetes mellitus
-Fair diabetes control BG 129, 03/24/2025 A1c 7.2
-Continue Insulin glargine 12iu HS, Aspart 6 iu
- Hold Farxiga
- Low resistant insulin sliding scale
- Diabetic diet/glucose monitoring
#Hyponatremia: 132, stabletrend Na with IVFs
#h/o CVA s/pt tPA 2017, continue pravastatin
#Hypothyroidism: cont Levoxyl, check TSH
# H/O BKA: Oxycodone, lidocaine for phantom pain
# Chronic ambulatory dysfunction: PT/ OT
#Peripheral neuropathy; duloxetine,
#Migraines
#Elderly patient with multiple co-morbidities;
DVT PPX-Eliquis
Code status- dnr
Anticipated Discharge: > 48 hours
Subjective/Interval History
-
Date of Service: April 01, 2025
Patient seen
Comfortably in bed.
Dyspneic when talking and moving around in bed.
Still having nausea, appetite.
Objective Data
-
Labs:
Laboratory Results
04/01/25
04:33
WBC 10.9 H
Hgb 10.4 L
Hct 33.2 L
Plt Count 231
Sodium 132 L
Potassium 4.1
Chloride 102
Carbon Dioxide 23
BUN 46 H
Creatinine 1.8 H
Glucose 129 H
Calcium 7.7 L
Vital Signs:
Vital Signs
Temp Pulse Resp BP Pulse Ox
97.6 F 108 14 95/77 98
04/01/25 07:21 04/01/25 06:00 04/01/25 06:00 04/01/25 08:36 04/01/25 00:43
I&O
03/31/25 04/01/25 04/02/25
06:59 06:59 06:59
Intake Total 280 / 280 1020 / 1020
Balance 280 / 280 1020 / 1020
Review of Systems
-
History Source: Patient
Constitutional: Reports No Appetite
EENT: Reports Hearing Loss
Respiratory: Reports Cough (Occasional mild cough)
Cardiac: Reports No Symptoms
Skin: Reports Other (Friable skin)
Neuro: Reports Other
Physical Exam
-
HEENT: Normocephalic
Respiratory: Clear to Auscultation
Cardiac: S1/S2 and Irregular Rhythm
GI: Soft, Nontender and Nondistended
Musculoskeletal: Other (Left lower extremL above-knee amputation . Right lower extremity right first toe amputated, shiny skin loss of head loss of sensation on the distal 2 third trace pedal edema)
Skin: Dry and Other (Frail skin with bruising)
Psych: Other (Patient is a poor historian, and does not have full knowledge of her medical condition)
--- NOTE | 2025-04-01 11:17 | W.PN.UPDATE ---
Addendum entered and electronically signed by Terence Julian MD 04/01/25 13:16:
Sepsis, POA
Original Note:
Update Note
Progress Note Update
I saw and evaluated the patient. I reviewed the resident�s note and agree with findings and plan as documented in the resident�s note.
No new complaints today.
Gen: remains NAD, awake and alert, appears chronically ill
Eyes: EOMI, PERRLA, no scleral icterus.
Neck: supple.
CV: continues to remain Tachycardic, irregularly irregular, +S1/S2, no m/r/g.
Resp: dec BS in the bases
Abd: +BS, soft, NT, ND
Skin: No rashes. Right lower extremity cool and with trace-1+ edema, L AKA
Neuro: CN 2-12 intact, non-focal.
Psych: Normal mood and affect.
03/30/25 21:55 Blood/Venous Blood Culture - Preliminary
No Growth in 24 hours- Final report to follow
03/30/25 21:55 Blood/Venous Blood Culture - Preliminary
No Growth in 24 hours- Final report to follow
03/30/25 21:55 Nose Nasal Screen MRSA (PCR) - Final
Staph aureus MRSA
03/30/25 12:18 Urine Urine Culture - Final
NO GROWTH
CT brain: No evidence of acute intracranial abnormality. 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 Interval increase in paranasal sinus disease especially on the right side compared to prior CT of the head.
Extensive left-sided paranasal sinus disease appears fairly stable.
CXR on admission: Subtle increase in interstitial markings within the mid to lower lungs, new from previous radiograph. Main differential considerations of interstitial edema and interstitial-type pneumonia.
CXR 03/31/25: Slightly prominent interstitial pulmonary markings with some improvement from prior. No new focal pulmonary consolidation. No large pleural effusion or pneumothorax. Stable cardiomediastinal silhouette. Chronic degenerative changes of
the shoulders and spine.
RLE venous U/S: No sonographic evidence for right lower extremity deep venous thrombosis.
Echo:
1. Left ventricular cavity size is 3.00 cm which is decreased.
2. Normal left ventricular function.
3. Ejection fraction is 55-60% by visual assessment.
4. Right ventricular cavity size cavity is mildly dilated.
5. Right ventricular systolic function is mildly decreased.
6. Severely dilated left atrium left atrium.
7. Moderately dilated right atrium.
8. Severe tricuspid regurgitation.
9. Mild pulmonary hypertension. Estimated pulmonary artery pressure of 42 mmHg assuming a right atrial pressure of 8 mmHg.
10. Compared to a prior transthoracic echocardiogram study from 05/30/2018 The right ventricle appears dilated with mildly impaired function, tricuspid valve regurgitation is now severe and the IVC is dilated without inspiratory collapse. The left
atrium is now severely dilated. The right atrium is now moderately dilated.
Acute hypoxemic respiratory failure:
-at this point this appears to be due to acute on chronic HFpEF
-based on repeat CXR that is without consolidation, pneumonia/sepsis has been ruled out. Also, of note, UTI has been ruled out with a negative urine culture.
-acute metabolic encephalopathy was likely due to acute on chronic HFpEF
-71% on 5L NC O2 on admission, afebrile (temp 100.2 F on admission, improved since), now weaned to 2L NC O2
-stop abx
-cont IV Lasix, daily wts, I/Os
-echo above, notable for EF 55-60%, RV dilation and dysfxn, severe TR, severe LA dilation
Afib with RVR:
-started on Eliquis 2.5mg BID
-cont Coreg
-cards following, will discuss better rate control strategy with cards
Cool RLE:
-check RLE art U/S with ABIs
Other problems:
Hyponatremia, improved
h/o CVA s/pt tPA 2018
Migraines
Hypothyroidism: cont Levoxyl, TSH normal
Essential HTN: cont BB
DM2: Resume Farxiga with possible UTI. Cont basal/bolus insulin, SSI/accuchecks
DNR as per [facility] records
Eliquis
IMU
[2025-04-01 12:24] LABS: Glucose - Point of Care 195 mg/dl (70-99)
[2025-04-01] MEDS: NOVOLOG FLEXPEN 6 UNITS SC (12:36)
[2025-04-01] MEDS: NOVOLOG FLEXPEN-LOW RESISTANCE 1 UNITS SC (12:38)
--- NOTE | 2025-04-01 14:41 | CM ---
manager bakery reviewed patient's chart and patients plan is to return to [facility] where patient resides when stable, referral sent in [facility].
[facility]
Report [phone]
[2025-04-01] MEDS: LASIX IV (17:46)
[2025-04-01 17:52] LABS: Glucose - Point of Care 128 mg/dl (70-99)
--- NOTE | 2025-04-01 18:05 | PTCARENOTE ---
pt drowsy but awakens easily. afib on monitorin low 100s. weaned to room air. pt refusing po intake and reported nausea this am but now states she is not nauseous and refused zofran. medicated with percocer prn for leg and neck pain with adequate
relief.afternoon dose of lasix held d/t low bp and no po intake of fluids. bladder scan done as ordered and documented.
[2025-04-01] MEDS: DESENEX/MITRAZOL/ZEASORB 1 APPLIC TOPICAL (21:20)
[2025-04-01] MEDS: TOPROL XL PO (21:20)
[2025-04-01 22:31] LABS: Glucose - Point of Care 142 mg/dl (70-99)
[2025-04-01] MEDS: LANTUS SC (22:35)
[2025-04-01] MEDS: TOPROL XL 50 MG PO (22:59)
--- NOTE | 2025-04-01 23:03 | PTCARENOTE ---
Patient appears to be very drowsy tonight, pt seems increasingly withdrawn, however pt remains oriented to place, and situation. Pt reported having little to no appetite today. Encouraged to drink some water. Pt in A-fib HR anywhere from 100-140s.
Initially waited to give PO Metoprolol due to soft BPs. BP stable, administered, see MAR. Will closely monitor. Pt placed on 2L NC, pulse ox in the low 90s. Pt tolerating frequent turning and repositioning. Call alex within reach.
[2025-04-02] VITALS (14 sets, daily range): BP systolic 96–117; BP diastolic 48–75; BMI 23.5
[2025-04-02] MEDS: PERCOCET 5/325 1 TABLET PO ×3 (03:32→18:18)
[2025-04-02] MEDS: TOPROL XL 12.5 MG PO (03:33)
--- NOTE | 2025-04-02 03:35 | PTCARENOTE ---
Pt HR jumped up to the 150s, unsustained. Pt asymptomatic. [facility] made aware, order for PO Toprol administered see SEP.
[2025-04-02] MEDS: SYNTHROID 75 MCG PO (04:49)
[2025-04-02 04:53] LABS: Hematocrit 34.0 % (37.0-47.0); Hemoglobin 10.7 g/dL (12.0-16.0); Mean Corp Hgb Conc. 31.5 g/dL (33.0-37.0); Mean Corpuscular Volume 88.8 fL (81.0-99.0); Platelet Count 254 10^3/uL (130-400); Red Cell Dist. Width 15.1 % (11.5-14.5)
[2025-04-02 05:17] LABS: Blood Urea Nitrogen 56 mg/dl (7-17); Calcium 8.1 mg/dl (8.4-10.2); Carbon Dioxide 24 mmol/L (22-30); Chloride 103 mmol/L (98-107); Estimated Creatinine Clearance 18 ml/min; Glucose 118 mg/dl (70-99); Potassium 4.6 mmol/L (3.5-5.1); Sodium 133 mmol/L (135-145); eGFR 22.38
--- NOTE | 2025-04-02 07:06 | W.PN.UPDATE ---
Update Note
Progress Note Update
RN reports that HR increasing to 150s more frequently. Received toprol 50mg po last evening and tolerated. Will give additional 12.5mg now.
--- NOTE | 2025-04-02 07:51 | W.PN.HOSP.TC ---
Today's Communication/Plan
-
Vascular surgery consult
Discussed plan and her step son present at the bedside
Assessment / Plan
Assessment / Plan
CT Head W/o Iv Contrast (03/30/2025)
No evidence of acute intracranial abnormality.
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 Interval increase in paranasal sinus disease especially on the right side compared to prior CT of the head. Extensive left-sided paranasal sinus disease appears fairly
stable.
US Perip Venous LOWER Ext RT (03/30/2025)
No sonographic evidence for right lower extremity deep venous thrombosis.
CR Chest Portable (03/30/2025)
Subtle increase in interstitial markings within the mid to lower lungs, new from previous radiograph.
CR Chest Portable (03/31/2025)
Slightly prominent interstitial pulmonary markings with some improvement from prior.
ECHO (04/01/2025)
1. Left ventricular cavity size is 3.00 cm which is decreased.
2. Normal left ventricular function.
3. Ejection fraction is 55-60% by visual assesment.
4. Right ventricular cavity size cavity is mildly dilated.
5. Right ventricular systolic function is mildly decreased.
6. Severely dilated left atrium left atrium.
7. Moderately dilated right atrium.
8. Severe tricuspid regurgitation.
9. Mild pulmonary hypertension. Estimated pulmonary artery pressure of 42 mmHg assuming a right atrial pressure of 8 mmHg.
10. Compared to a prior transthoracic echocardiogram study from 05/30/2018 The right ventricle appears dilated with mildly impaired function, tricuspid valve regurgitation is now severe and the IVC is dilated without inspiratory collapse. The left
atrium is now severely dilated. The right atrium is now moderately dilated.
Perip Art LOWER Ext w NORA 04/02/2025
NORA zero. Toe pressure not performed due to absence of hallux. Arterial duplex examination reveals monophasic waveforms in the common femoral artery and profunda femoral artery. 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 The right posterior
tibial artery and dorsalis pedis artery appear to be occluded.
#Acute hypoxic respiratory failure
-Head CT showed no acute ischemic changes
-Patient was found to be hypoxic saturating at 70s, with increased HR, RR, Temp
-Currently saturating 98% 2 L of oxygen via nasal cannula
-Chest x-ray did not show any focal pneumonia,
-In light of Negative cultures and ECHO
-Presentation due to HF (RHF)/
-Continue oxygen therapy with a goal of >90%
-DC IVF, daily wts, I/Os
# Urinary tract infection
-Urine and blood culture negative
-DC Abx
-Holding Farxiga
# Severe sepsis
- In light of - Lactic acid normal, recent UA and Blood culture negative and Echo with RHF
-Sepsis is less likely
- The white count is normal, with relative neutrophilia/left shift
- Elevated HR, RR, Temp, on presentation
- ABX IV Zosyn and Vanco discontinued
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
-Cr 2.1 creatinine increased
-Hold furosemide
-Continue to monitor BMP
-Sodium bicarbonate for metabolic acidosis
-Repeat CXR, some improvement
# Heart failure with preserved ejection fraction
- BBlockers resumed
-Farxiga and Lasix on hold
- Daily weight
-I/Os
# Cardiac arrhythmias
-EKG done in the ED shows new A-fib with RVR
-CHADVASC score 9
-Started Eliquis 2.5mg PO bid
# Insulin-dependent diabetes mellitus
-Fair diabetes control BG 129, 03/24/2025 A1c 7.2
-Continue Insulin glargine 12iu HS, Aspart 6 iu
- Hold Farxiga
- Low resistant insulin sliding scale
- Diabetic diet/glucose monitoring
#Hyponatremia: 133, stable trend Na with IVFs
#h/o CVA s/pt tPA 2017, continue pravastatin
#Hypothyroidism: cont Levoxyl, TSH
# H/O BKA: Oxycodone, lidocaine for phantom pain
# Chronic ambulatory dysfunction: PT/ OT signed off
#Peripheral neuropathy; duloxetine,
#Migraines
#Elderly patient with multiple co-morbidities;
DVT PPX-Eliquis
Code status- dnr
Anticipated Discharge: > 48 hours
Subjective/Interval History
-
Date of Service: April 02, 2025
Comfortably in bed.
No new complains
Objective Data
-
Labs:
Laboratory Results
04/02/25
04:30
WBC 10.3
Hgb 10.7 L
Hct 34.0 L
Plt Count 254
Sodium 133 L
Potassium 4.6
Chloride 103
Carbon Dioxide 24
BUN 56 H
Creatinine 2.1 H
Glucose 118 H
Calcium 8.1 L
Vital Signs:
Vital Signs
Temp Pulse Resp BP Pulse Ox
97.4 F 117 34 100/49 94
04/02/25 03:10 04/02/25 06:00 04/02/25 06:00 04/02/25 06:00 04/01/25 23:19
I&O
04/01/25 04/02/25 04/03/25
06:59 06:59 06:59
Intake Total 1020 / 1020 100 / 100
Balance 1020 / 1020 100 / 100
Review of Systems
-
History Source: Patient
EENT: Reports Hearing Loss
Cardiac: Reports No Symptoms
Skin: Reports Other (Friable skin)
Neuro: Reports Other
Physical Exam
-
HEENT: Normocephalic
Respiratory: Clear to Auscultation
Cardiac: S1/S2 and Irregular Rhythm
GI: Soft, Nontender and Nondistended
Musculoskeletal: Other (Left lower extremL above-knee amputation . Right lower extremity right first toe amputated, shiny skin loss of head loss of sensation on the distal 2 third trace pedal edema)
Skin: Dry and Other (Frail skin with bruising)
[2025-04-02 07:57] LABS: Glucose - Point of Care 119 mg/dl (70-99)
[2025-04-02] MEDS: NOVOLOG FLEXPEN-LOW RESISTANCE SC ×3 (08:06→17:34)
[2025-04-02] MEDS: CYMBALTA DELAYED RELEASE 20 MG PO (08:15)
[2025-04-02] MEDS: FEOSOL 325 MG PO (08:16)
[2025-04-02] MEDS: DESENEX/MITRAZOL/ZEASORB 1 APPLIC TOPICAL ×2 (08:16→19:48)
[2025-04-02] MEDS: SODIUM BICARBONATE 650 MG PO ×2 (08:16→19:50)
[2025-04-02] MEDS: ELIQUIS 2.5 MG PO ×2 (08:16→19:50)
[2025-04-02] MEDS: TOPROL XL 50 MG PO ×2 (08:16→19:48)
[2025-04-02] MEDS: NOVOLOG FLEXPEN 6 UNITS SC (08:17)
--- NOTE | 2025-04-02 08:36 | W.PN.CD ---
Today's Communication / Plan
-
Rising BUN/creatinine --> hold Lasix
Continue metoprolol and apixaban for A-fib
NORA of RLE
Impression / Plan
-
Impression
89-year-old female with HFpEF, chronic anemia, history of CVA, hypertension, hyperlipidemia, IDDM, PVD, hypothyroidism presenting to the ER with altered mental status and found to be septic secondary to UTI. We are consulted for new onset afib w RVR.
#HFpEF
- Echo 03/31 shows normal function severe TR Estimated PASP of 42 mmHg.
- Bed weights -- unable to stand dry weight around 135
- Elevated BNP�23,700
- Troponins negative
- Lasix on hold for rising BUN/Cr; may be euvolemic (tough volume exam)
- SGLT2i stopped given UTI
#New onset A-fib with RVR
- Contributing factors-sepsis vs heart failure
- EKG - A-fib with RVR
- Pablo Vasc score of 9
- Continue Eliquis 2.5 mg, twice daily based on her age and renal function.
- Rates for the most part in 10
- Continue metoprolol
- Monitor on telemetry
- Reviewed progress notes from [facility], which mentioned history of A-fib. But patient was not on DOAC as per the note.
#Sepsis
Likely secondary to UTI
Continue antibiotics as per primary team
#Peripheral vascular disease
Continue pravastatin
right leg is very cold ABIs ordered consider VS consult
Subjective; she is asking for Percocet. Bedbound
Physical Exam
Vital Signs/Labs
Vital Signs
Temp Pulse Resp BP Pulse Ox
97.4 F 103 34 117/64 94
04/02/25 07:55 04/02/25 08:16 04/02/25 06:00 04/02/25 08:16 04/01/25 23:19
04/01/25 04/02/25 04/03/25
06:59 06:59 06:59
Actual Weight 142 lb 3.17 oz 145 lb 4 oz
04/02/25 04:30
04/02/25 04:30
03/30/25 03/30/25
11:47 12:18
[id number] Pept Cancelled
LAB Results
03/30/25 03/30/25
11:47 12:18
Troponin I Cancelled 0.024
Physical Exam
Constitutional: No acute distress and Comfortable
Cardiovascular: Rhythm/rate is irregular, S1S2 is normal and Murmur/rub/gallop absent
Respiratory: Respiratory effort normal and Other (decreased breath sounds throughout)
Data Reviewed
-
Date of Service: April 02, 2025
Medical Decision Making: Reviewed Test Results, Independent Historian Assessment, Test Interpretation and Review of Case with other Provider
EKG: Tracing Personally Visualized and interpreted
Echo: Report Reviewed by me
--- NOTE | 2025-04-02 09:12 | W.PN.UPDATE ---
Update Note
Progress Note Update
I saw and evaluated the patient. I reviewed the resident�s note and agree with findings and plan as documented in the resident�s note.
c/o chronic CP for which she is asking for her usual percocet.
Gen: remains NAD, awake and alert, appears chronically ill
Eyes: EOMI, PERRLA, no scleral icterus.
Neck: supple.
CV: Tachycardic, irregularly irregular, +S1/S2, no m/r/g.
Resp: CTAB anteriorly
Abd: +BS, soft, NT, ND
Skin: No rashes. Right lower extremity slightly cool and with trace edema, L AKA
Neuro: CN 2-12 intact, non-focal.
Psych: Normal mood and affect.
03/30/25 21:55 Blood/Venous Blood Culture - Preliminary
No Growth in 48 hours- Final report to follow
03/30/25 21:55 Blood/Venous Blood Culture - Preliminary
No Growth in 48 hours- Final report to follow
03/30/25 21:55 Nose Nasal Screen MRSA (PCR) - Final
Staph aureus MRSA
03/30/25 12:18 Urine Urine Culture - Final
NO GROWTH
CT brain: No evidence of acute intracranial abnormality. 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 Interval increase in paranasal sinus disease especially on the right side compared to prior CT of the head.
Extensive left-sided paranasal sinus disease appears fairly stable.
CXR on admission: Subtle increase in interstitial markings within the mid to lower lungs, new from previous radiograph. Main differential considerations of interstitial edema and interstitial-type pneumonia.
CXR 03/31/25: Slightly prominent interstitial pulmonary markings with some improvement from prior. No new focal pulmonary consolidation. No large pleural effusion or pneumothorax. Stable cardiomediastinal silhouette. Chronic degenerative changes of
the shoulders and spine.
RLE venous U/S: No sonographic evidence for right lower extremity deep venous thrombosis.
Echo:
1. Left ventricular cavity size is 3.00 cm which is decreased.
2. Normal left ventricular function.
3. Ejection fraction is 55-60% by visual assessment.
4. Right ventricular cavity size cavity is mildly dilated.
5. Right ventricular systolic function is mildly decreased.
6. Severely dilated left atrium left atrium.
7. Moderately dilated right atrium.
8. Severe tricuspid regurgitation.
9. Mild pulmonary hypertension. Estimated pulmonary artery pressure of 42 mmHg assuming a right atrial pressure of 8 mmHg.
10. Compared to a prior transthoracic echocardiogram study from 05/30/2018 The right ventricle appears dilated with mildly impaired function, tricuspid valve regurgitation is now severe and the IVC is dilated without inspiratory collapse. The left
atrium is now severely dilated. The right atrium is now moderately dilated.
Acute hypoxemic respiratory failure:
-71% on 5L NC O2 on admission, afebrile (temp 100.2 F on admission, improved since), now weaned to 2L NC O2
-at this point this appears to be due to acute on chronic HFpEF
-based on repeat CXR that is without consolidation, pneumonia/sepsis has been ruled out. Also, of note, UTI has been ruled out with a negative urine culture. Abx stopped 9/4AM.
-acute metabolic encephalopathy was likely due to acute on chronic HFpEF
-has been on IV Lasix. With GABBY, stop lasix.
-daily wts, I/Os
-echo above, notable for EF 55-60%, RV dilation and dysfxn, severe TR, severe LA dilation
Afib with RVR:
-started on Eliquis 2.5mg BID
-cont Coreg
-cards following, will discuss better rate control strategy with cards
Cool RLE:
-check RLE art U/S with ABIs
Other problems:
Hyponatremia, improved
h/o CVA s/pt tPA 2017
Migraines
Hypothyroidism: cont Levoxyl, TSH normal
Essential HTN: cont BB
DM2: Cont basal/bolus insulin, SSI/accuchecks. Holding Farxiga with GABBY.
DNR as per [facility] records
Eliquis
IMU
[2025-04-02 12:26] LABS: Glucose - Point of Care 102 mg/dl (70-99)
--- NOTE | 2025-04-02 13:11 | CON.VAS ---
Addendum entered and electronically signed by Kyle Ruby III, MD 04/02/25 16:00:
This patient was seen and examined in collaboration with GRAZYNA Miller. I agree with the history and physical exam as well as the assessment and plan. I have the following additions:
89-year-old female
assisted resident
Left above-knee amputation
Nonambulatory for several years
Cold right leg
Arterial studies personally reviewed today. RLE bypass is occluded. No flow identified in the PT and DP. Monophasic flow identified in the right common femoral artery and profunda femoral artery
On exam she is in no acute distress
Her right calf and foot are cold and mottled
Limited passive ankle range of motion. She cannot actively dorsiflex or plantarflex her right ankle
She has no calf tenderness
I had a long conversation with Danielle and her stepson who is at the bedside earlier today. Based on her exam I suspect that the bypass has been occluded for some time. She is clear that her current quality of life is not great but she has 'gotten
used to it '. I do not anticipate that endovascular intervention to reopen the bypass would be successful or durable. [id number]-[id number]-tald amputation is an option but understandably she is not interested in this. I think the best option at this point is
to proceed with palliative care/hospice consult for end-of-life discussion/planning. She agreed with this approach.
Please call with additional questions/concerns
Signed:
Kyle Ruby III, MD
Vascular Surgery
[facility]
Original Note:
Consultation
Consultation Request
Date/Time Consultation Performed: 04/02/25 1230
Requesting Provider: Hospitalist
Performing Provider: Davina Madrid NP-C for Kyle Ruby III
Reason for Consultation: Right lower extremity coolness/ abnormal NORA/TBI
Medical History
-
Chief Complaint: Right lower extremity coolness
History of Present Illness:
This is an 89-year-old female with significant past medical history for CHF, CVA, valvular disease, hypothyroidism, diabetes, peripheral arterial disease, polio, CKD, and necrotizing fasciitis who presented to outside hospital from [facility]
where she resides for unresponsive episode, ED evaluation significant for UTI and sepsis. Patient is a poor historian and intermittently confused thus HPI is limited and contributed by chart review. Patient with left AKA and history of bypass of
right lower extremity. Patient cannot recall detail of either procedure, including operative surgeon or hospital. Currently patient endorses that she is comfortable and offers no pain at the right lower extremity. She reports she has been
bedbound for many years, roughly 9.
Past Medical History
Past Medical History: CHF (HFpEF 70-75% Last Echo 2018), CVA, Hypothyroidism, IDDM, Valvular Disease and Other (polio, necrotizing fasciitis, CKD)
Social History
Tobacco: Other (Patient is unclear on social history cannot obtain)
Living: Detention ([facility])
Family History
Family History: Unable to Obtain
Allergies / Home Medications
Allergy/AdvReac Type Severity Reaction Status Date / Time
amlodipine Allergy Unknown Verified 03/30/25 16:34
sulfamethoxazole (From Allergy 'kidney Verified 03/30/25 16:34
Bactrim) doctor
told me
not to
take it'
trimethoprim (From Bactrim) Allergy 'kidney Verified 03/30/25 16:34
doctor
told me
not to
take it'
�Medication �Instructions �Recorded �Confirmed �Type
insulin aspart U-100 100 unit/mL 6 units SC AC Diabetes 08/10/16 03/30/25 History
(3 mL) subcutaneous pen (Novolog
FlexPen U-100 Insulin aspart)
sodium bicarbonate 650 mg tablet 650 mg PO BID Electrolyte Repletion 08/10/16 03/30/25 History
acetaminophen 325 mg tablet 650 mg PO Q4HPRN PRN mild 08/17/16 03/30/25 History
pain/fever
ferrous sulfate 325 mg (65 mg 325 mg PO MOWEFR@0800 Supplement 08/17/16 03/30/25 History
iron) tablet (FeroSul)
magnesium hydroxide 400 mg/5 mL 30 ml PO HSPRN PRN constipation 08/17/16 03/30/25 History
oral suspension
pravastatin 20 mg tablet 20 mg PO WE@0800 High Cholesterol 08/17/16 03/30/25 History
carvedilol 12.5 mg tablet 25 mg PO BID Blood Pressure 05/29/18 03/30/25 History
cholecalciferol (vitamin D3) 1,250 1,250 mcg PO MONTHLY Supplement 03/30/25 03/30/25 History
mcg (50,000 unit) capsule
dapagliflozin propanediol 5 mg 5 mg PO DAILY Heart Failure 03/30/25 03/30/25 History
tablet (Farxiga)
duloxetine 20 mg capsule,delayed 20 mg PO DAILY Phantom limb pain 03/30/25 03/30/25 History
release
furosemide 20 mg tablet 20 mg PO DAILY Heart Failure 03/30/25 03/30/25 History
insulin glargine 100 unit/mL (3 12 unit SC HS Diabetes 03/30/25 03/30/25 History
mL) subcutaneous pen (Basaglar
KwikPen U-100 Insulin)
levothyroxine 75 mcg tablet 75 mcg PO DAILY@0600 Thyroid 03/30/25 03/30/25 History
lidocaine 4 % topical cream 1 applic topical TIDPRN PRN 03/30/25 03/30/25 History
phantom limb pain
oxycodone-acetaminophen 5 mg-325 1 tab PO Q4HPRN PRN moderate pain; 03/30/25 03/30/25 History
mg tablet use lidocaine first
Review of Systems
-
Unable to obtain full review of systems at this time due to: Acuity
Physical Exam
Vital Signs
Temp Pulse Resp BP Pulse Ox
97.8 F 97 38 116/64 94
04/02/25 11:35 04/02/25 10:00 04/02/25 10:00 04/02/25 10:00 04/02/25 08:00
Lab Results
04/02/25 04:30
04/02/25 04:30
Troponin I 0.024 ng/ml 03/30/25 12:18
Gjh-A-Kjliyunxcmv Pept 93719 pg/ml 03/30/25 12:18
Physical Exam
General: No Apparent Distress
HEENT: Normocephalic, Anicteric and Atraumatic
Respiratory: Non Labored Respirations
Cardiac: Negative JVD
GI: Soft and Non Tender
Musculoskeletal: Edema (+1 edema right lower extremity)
Skin: Other (Right lower extremity cool, foot cyanotic appearing, status post multiple toe amputations, patient with decreased motor function, may be a level of chronicity given history of polio, but patient cannot say for certain, cannot palpate
distal pulses at right foot DP or PT)
Neuro: Awake and Oriented (Oriented to self and place, can recall year but cannot recall president or recent events)
Assessment / Plan
-
Assessment: 89-year-old female admitted for UTI, sepsis, and acute hypoxic respiratory failure noted to have coolness to right lower extremity with abnormal ultrasound with NORA of 0 and occluded right lower extremity bypass
Plan:
Patient with severe peripheral arterial disease with NORA of 0 and occluded bypass in addition to posterior tibial artery and dorsalis pedis artery, suspect the level of chronicity given appearance of foot, decreased motor function, and patient
endorsing no significant pain. Given patient's overall health condition and extensive past medical history, would consider palliative care/hospice discussion with family and ultimately goals of care discussion with patient and family.
Unfortunately, there are no real options for surgical revascularization and ultimately patient would require amputation likely [id number]. Defer to attending for final surgical plan.
--- NOTE | 2025-04-02 13:22 | W.PN.NEPH.PH ---
Today's Communication / Plan
-
rnal US
hold lasix
follow labs
Assessment/Plan
-
Impression:
GABBY
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
Syncope/altered mental status
New onset AFIB
History of peripheral vascular disease
Diabetes
Hypothyroidism
Left AKA
Chronic metabolic acidosis
Hyponatremia
Plan:
GABBY: cr cont to rise slowly 2.1, UOP not measured , bladder scan 129cc
UA -UTI sample but cx no growth, check U pcr -likely DM nephroapthy baseline, check renal US
-likely prerenally mediated stimulus prior to admission with hemodynamic instability
Holding SGLT2I and lasix in setting of acute kidney injury
-Zosyn renally dosed
BP stable now
met acidosis stable-cont sodium bicarbonate tablets for chronic metabolic acidosis
follow labs
-
-
Date of Service: April 02, 2025
CC / HPI / ROS
-
Chief Complaint:
Acute kidney injury
History of Present Illness:
Hemodynamically labile
Creatinine increasing to 2.1
wt is increasing
BP stable
Review of Systems:
Urine output not recorded
on O2 2lit
No fever
Labs
-
Labs:
WBC 10.3 10^3/uL (4.8-10.8) 04/02/25 04:30
RBC 3.83 10^6/uL (4.20-5.40) L 04/02/25 04:30
Hgb 10.7 g/dL (12.0-16.0) L 04/02/25 04:30
Hct 34.0 % (37.0-47.0) L 04/02/25 04:30
Plt Count 254 10^3/uL (130-400) 04/02/25 04:30
Sodium 133 mmol/L (135-145) L 04/02/25 04:30
Potassium 4.6 mmol/L (3.5-5.1) 04/02/25 04:30
Chloride 103 mmol/L (98-107) 04/02/25 04:30
Carbon Dioxide 24 mmol/L (22-30) 04/02/25 04:30
BUN 56 mg/dl (7-17) H 04/02/25 04:30
Creatinine 2.1 mg/dL (0.6-1.0) H 04/02/25 04:30
eGFR 22.38 04/02/25 04:30
Glucose 118 mg/dl (70-99) H 04/02/25 04:30
Calcium 8.1 mg/dl (8.4-10.2) L 04/02/25 04:30
Btv-N-Bjwnzyebdyn Pept 99944 pg/ml 03/30/25 12:18
Albumin 2.5 g/dl (3.5-5.0) L 03/31/25 05:00
Physical Exam
-
Vital Signs:
Vital Signs
Temp Pulse Resp BP Pulse Ox
97.8 F 97 38 116/64 94
04/02/25 11:35 04/02/25 10:00 04/02/25 10:00 04/02/25 10:00 04/02/25 08:00
Cardiovascular:: Regular rate and rhythm
Respiratory:: Bilateral: Coarse
Lung Excursion:: Normal
Abdomen:: Nontender and Soft
Bowel Sounds:: Normal
Extremity Edema:: +1: Right: and None: Left: (left AKA)
Ruby Catheter: No
[2025-04-02] MEDS: NOVOLOG FLEXPEN SC ×2 (14:23→17:35)
--- NOTE | 2025-04-02 15:15 | PTCARENOTE ---
Straight cath x1 completed per order to collect urine sample. Sample sent to lab.
--- NOTE | 2025-04-02 15:50 | PTCARENOTE ---
Patient said to RN that she is 'ready to go to [facility]'. When RN asked patient to elaborate, she stated that the vascular SWE[employer] POT[employer] DISINTEGRATOR talked to her and said 'hospice is an option and I would like to do that'. Resident Dr. Chang made aware. Hospice consult
placed by MD. Pastoral care at bedside. Care ongoing.
--- NOTE | 2025-04-02 15:55 | PTCARENOTE ---
Patient AOx3. Confused and forgetful at times. Bed alarm on and audible. Flat affect. 2L NC. R foot is cold, cyanotic and does not have a pulse. R foot great toe with amputation. L AKA. A fib on the monitor. BP soft, but MAP >65. Incontinent to
bowel and bladder. Poor appetite. Call alex within reach, bed in lowest position, and bed of wheels locked.
--- NOTE | 2025-04-02 15:56 | CHAP ---
Addendum entered by Kenyetta Enrique 04/02/25 16:11:
anticipates arriving before 4:30 today to provide Sacrament of the Sick
Original Note:
Emotional and spiritual support provided. Prayer shared. request relayed, awaiting call back. Prayer blanket given.
--- NOTE | 2025-04-02 16:06 | CM ---
Addendum entered by Jessica Dueñas 04/02/25 16:34:
Per Don in admissions at [facility] [phone] she will be here on the weekend to assist with admissions at hospice.
Addendum entered by Jessica Dueñas 04/02/25 16:33:
Patient has selected [facility] referral sent through [facility].
Original Note:
Chart reviewed and patient has decided she wants to go on hospice, correctional case records supervisor met with patient and she states she wants to return to [facility] on hospice, correctional case records supervisor reached out to Don in admissions at [facility] and left a message
regarding options for hospice at [facility].
Plan; Patient to return to [facility] on hospice, message left with [facility] admissions to review hospice options at [facility].
[2025-04-02 17:45] LABS: Glucose - Point of Care 101 mg/dl (70-99)
[2025-04-02 21:50] LABS: Glucose - Point of Care 100 mg/dl (70-99)
[2025-04-02] MEDS: LANTUS SC (21:54)
--- NOTE | 2025-04-02 22:04 | HOSPNOTE ---
Late referral received. Will follow up tomorrow morning with conversation with patient, family and facility. More information to follow.
[2025-04-03] VITALS (14 sets, daily range): BP systolic 92–134; BP diastolic 47–89; BMI 22.6
--- NOTE | 2025-04-03 00:05 | PTCARENOTE ---
Patient is AAOX3. Afib on monitor. Right leg is cold, cyanotic and does not have a pulse. Left AKA. 2L NC SpO2 high 90s. Patient is incontinent of bowl and bladder. call alex is in reach, bed alarm on.
[2025-04-03] MEDS: SYNTHROID 75 MCG PO (03:56)
[2025-04-03 04:10] LABS: Hematocrit 34.8 % (37.0-47.0); Hemoglobin 11.1 g/dL (12.0-16.0); Mean Corp Hgb Conc. 31.9 g/dL (33.0-37.0); Mean Corpuscular Volume 89.9 fL (81.0-99.0); Platelet Count 266 10^3/uL (130-400); Red Cell Dist. Width 15.3 % (11.5-14.5)
[2025-04-03 04:37] LABS: Blood Urea Nitrogen 60 mg/dl (7-17); Calcium 8.0 mg/dl (8.4-10.2); Carbon Dioxide 24 mmol/L (22-30); Chloride 104 mmol/L (98-107); Estimated Creatinine Clearance 19 ml/min; Glucose 87 mg/dl (70-99); Potassium 4.3 mmol/L (3.5-5.1); Sodium 135 mmol/L (135-145); eGFR 23.73
[2025-04-03] MEDS: PERCOCET 5/325 1 TABLET PO ×3 (06:23→19:44)
--- NOTE | 2025-04-03 08:21 | W.PN.HOSP.TC ---
Today's Communication/Plan
-
To be discharged home tomorrow on hospice
Assessment / Plan
Assessment / Plan
An 89-year-old female who had presented 4 days ago for an unresponsive episode show initially evaluated in the ED for UTI and sepsis.
And was found to be in A-fib with rapid ventricular response she
She had recently been treated over the past few weeks for pedal edema for possible new onset heart failure with Lasix
She is close she is currently being evaluated for cardiorenal syndrome,
She was called in to be evaluated by referred by vascular team following ultrasound finding of NORA of 0 with lower extremity bypass, ACTIMIZE ARCHITECT and DPA being occluded on the right lower extremity
She Has not chosen to be on hospice/palliative care case management following
She has refused food today and follows valuation not done as she did not want to be disturbed
Excited to be going back tomorrow
CT Head W/o Iv Contrast (03/30/2025)
No evidence of acute intracranial abnormality.
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 Interval increase in paranasal sinus disease especially on the right side compared to prior CT of the head. Extensive left-sided paranasal sinus disease appears fairly
stable.
US Periph Venous LOWER Ext RT (03/30/2025)
No sonographic evidence for right lower extremity deep venous thrombosis.
CR Chest Portable (03/30/2025)
Subtle increase in interstitial markings within the mid to lower lungs, new from previous radiograph.
CR Chest Portable (03/31/2025)
Slightly prominent interstitial pulmonary markings with some improvement from prior.
ECHO (04/01/2025)
1. Left ventricular cavity size is 3.00 cm which is decreased.
2. Normal left ventricular function.
3. Ejection fraction is 55-60% by visual assesment.
4. Right ventricular cavity size cavity is mildly dilated.
5. Right ventricular systolic function is mildly decreased.
6. Severely dilated left atrium left atrium.
7. Moderately dilated right atrium.
8. Severe tricuspid regurgitation.
9. Mild pulmonary hypertension. Estimated pulmonary artery pressure of 42 mmHg assuming a right atrial pressure of 8 mmHg.
10. Compared to a prior transthoracic echocardiogram study from 05/30/2018 The right ventricle appears dilated with mildly impaired function, tricuspid valve regurgitation is now severe and the IVC is dilated without inspiratory collapse. The left
atrium is now severely dilated. The right atrium is now moderately dilated.
US Periph Art LOWER Ext w NORA 04/02/2025
NORA zero. Toe pressure not performed due to absence of hallux. Arterial duplex examination reveals monophasic waveforms in the common femoral artery and profunda femoral artery. 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 The right posterior
tibial artery and dorsalis pedis artery appear to be occluded.
Renal ultrasound [04/02/2025]
1. Negative for hydronephrosis. There is asymmetric cortical thinning of the left kidney as compared with the right.
2. As above, 2.1 cm rounded probably calcified lesion along the medial aspect of the left kidney. Possibly calcified aneurysm or less likely exophytic calcified cyst. Exact etiology indeterminate, could be further evaluated with CT as warranted.
3. 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
#Acute hypoxic respiratory failure
-Currently saturating 98% 2 L of oxygen via nasal cannula
-Head CT showed no acute ischemic changes
-Patient was found to be hypoxic saturating at 70s, with increased HR, RR, Temp
-Chest x-ray did not show any focal pneumonia,
-In light of Negative cultures and ECHO
-Presentation most likely due to HF (RHF)
-Continue oxygen therapy with a goal of >90%
-DC IVF, daily wts, I/Os
# Urinary tract infection
-Urine and blood culture negative
-Not on antibiotic
-Holding Farxiga
# Severe sepsis
- In light of - Lactic acid normal, recent UA and Blood culture negative and Echo with RHF
-Sepsis is less likely
- ABX IV Zosyn and Vanco discontinued
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
-Cr 2.0 creatinine
-Furosemide still on hold
-Continue to monitor BMP
-Sodium bicarbonate for metabolic acidosis
# Heart failure with preserved ejection fraction
- BBlockers resumed
-Farxiga and Lasix on hold
- Daily weight
-I/Os
# Cardiac arrhythmias
-EKG done in the ED shows new A-fib with RVR
-Rate control metoprolol XL 50 mg p.o.
-CHADVASC score 9
-Started Eliquis 2.5mg PO bid
# Insulin-dependent diabetes mellitus
-Fair diabetes control BG 129, 03/24/2025 A1c 7.2
-Night of patient not eating monitor serum glucose Closely
- Hold Farxiga
- Low resistant insulin sliding scale
- Diabetic diet/glucose monitoring
#Hyponatremia: 135, stable trend Na with IVFs
#h/o CVA s/pt tPA 2017, continue pravastatin
#Hypothyroidism: cont Levoxyl, TSH
# H/O BKA: Oxycodone, lidocaine for phantom pain
# Chronic ambulatory dysfunction: PT/ OT signed off
#Peripheral neuropathy; duloxetine,
#Migraines
#Elderly patient with multiple co-morbidities;
DVT PPX-Eliquis
Code status- dnr
Dispo- residential on hospice
Anticipated Discharge: Within 24 hours
Subjective/Interval History
-
Date of Service: April 03, 2025
Met lying in bed
Has frequently been refusing her food
Objective Data
-
Labs:
Laboratory Results
04/03/25
03:55
WBC 9.4
Hgb 11.1 L
Hct 34.8 L
Plt Count 266
Sodium 135
Potassium 4.3
Chloride 104
Carbon Dioxide 24
BUN 60 H
Creatinine 2.0 H
Glucose 87
Calcium 8.0 L
Vital Signs:
Vital Signs
Temp Pulse Resp BP Pulse Ox
97.7 F 96 28 93/57 93
04/03/25 08:17 04/03/25 06:00 04/03/25 06:00 04/03/25 06:00 04/02/25 20:13
I&O
04/02/25 04/03/25 04/04/25
06:59 06:59 06:59
Intake Total 100 / 100 480 / 480
Output Total 30 / 30
Balance 100 / 100 450 / 450
Review of Systems
-
History Source: Patient
[2025-04-03 09:05] LABS: Glucose - Point of Care 87 mg/dl (70-99)
[2025-04-03] MEDS: ELIQUIS 2.5 MG PO ×2 (10:30→22:43)
[2025-04-03] MEDS: ROXICODONE 5 MG PO (10:30)
[2025-04-03] MEDS: CYMBALTA DELAYED RELEASE 20 MG PO (10:30)
[2025-04-03] MEDS: SODIUM BICARBONATE 650 MG PO ×2 (10:31→22:43)
[2025-04-03] MEDS: TOPROL XL 50 MG PO (10:31)
[2025-04-03] MEDS: DESENEX/MITRAZOL/ZEASORB 1 APPLIC TOPICAL ×2 (10:32→22:42)
[2025-04-03] MEDS: NOVOLOG FLEXPEN-LOW RESISTANCE SC ×3 (10:35→18:44)
--- NOTE | 2025-04-03 12:02 | W.PN.NEPH.PH ---
Today's Communication / Plan
-
observe, while hospice being considered
Assessment/Plan
-
Impression:
GABBY
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
Syncope/altered mental status
New onset AFIB
History of peripheral vascular disease
Diabetes
Hypothyroidism
Left AKA
Chronic metabolic acidosis
Hyponatremia
Plan:
GABBY: cr stable at 2, UOP not measured , bladder scan 45cc
UA -UTI sample but cx no growth, check U pcr -likely DM nephroapthy baseline,
renal US no hydro but cortical thinning and likely calcified lesion 2.1cm of left kidney-aneurysm
Fena is low, prerenally mediated with afib and labile Bps
Holding SGLT2I and lasix in setting of acute kidney injury
-Zosyn renally dosed
BP stable now
met acidosis stable-cont sodium bicarbonate tablets for chronic metabolic acidosis
follow labs
GOC discussion ongoing, possible hospice being considered per CM notes
d/w nursing
-
-
Date of Service: April 03, 2025
CC / HPI / ROS
-
Chief Complaint:
Acute kidney injury
History of Present Illness:
Creatinine stable at 2
wt is down
BP labile with tachy afib
Review of Systems:
Urine output not recorded
on O2 2lit
No fever
Labs
-
Labs:
WBC 9.4 10^3/uL (4.8-10.8) 04/03/25 03:55
RBC 3.87 10^6/uL (4.20-5.40) L 04/03/25 03:55
Hgb 11.1 g/dL (12.0-16.0) L 04/03/25 03:55
Hct 34.8 % (37.0-47.0) L 04/03/25 03:55
Plt Count 266 10^3/uL (130-400) 04/03/25 03:55
Sodium 135 mmol/L (135-145) 04/03/25 03:55
Potassium 4.3 mmol/L (3.5-5.1) 04/03/25 03:55
Chloride 104 mmol/L (98-107) 04/03/25 03:55
Carbon Dioxide 24 mmol/L (22-30) 04/03/25 03:55
BUN 60 mg/dl (7-17) H 04/03/25 03:55
Creatinine 2.0 mg/dL (0.6-1.0) H 04/03/25 03:55
eGFR 23.73 04/03/25 03:55
Glucose 87 mg/dl (70-99) 04/03/25 03:55
Calcium 8.0 mg/dl (8.4-10.2) L 04/03/25 03:55
Ywe-P-Sqzdibpgxih Pept 22332 pg/ml 03/30/25 12:18
Albumin 2.5 g/dl (3.5-5.0) L 03/31/25 05:00
Physical Exam
-
Vital Signs:
Vital Signs
Temp Pulse Resp BP Pulse Ox
97.3 F 108 17 114/82 96
04/03/25 11:40 04/03/25 08:00 04/03/25 08:00 04/03/25 08:00 04/03/25 08:25
Cardiovascular:: Regular rate and rhythm
Respiratory:: Bilateral: Coarse
Lung Excursion:: Normal
Abdomen:: Nontender and Soft
Bowel Sounds:: Normal
Extremity Edema:: +1: Right: and None: Left: (left AKA)
Ruby Catheter: No
--- NOTE | 2025-04-03 12:40 | HOSPNOTE ---
Follow up on referral from 04/02 - TT with SUNITA Thomas - Hospice can admit to [facility] as soon as 04/04. Checking to see when discharge will happen and when [facility] can take patient. We will follow up with vaibhav.
[2025-04-03 12:43] LABS: Glucose - Point of Care 91 mg/dl (70-99)
[2025-04-03] MEDS: NOVOLOG FLEXPEN SC ×3 (12:56→18:43)
--- NOTE | 2025-04-03 12:56 | W.PN.UPDATE ---
Update Note
Progress Note Update
Seen and examined the patient. Agree with the plan set forth by the resident. See changes in my documentation
89-year-old female with CHF
03/30/25 21:55 Blood/Venous Blood Culture - Preliminary
No Growth in 48 hours- Final report to follow
03/30/25 21:55 Nose Nasal Screen MRSA (PCR) - Final
Staph aureus MRSA
03/30/25 12:18 Urine Urine Culture - Final
NO GROWTH
CT brain: No evidence of acute intracranial abnormality. 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 Interval increase in paranasal sinus disease especially on the right side compared to prior CT of the head.
Extensive left-sided paranasal sinus disease appears fairly stable.
CXR on admission: Subtle increase in interstitial markings within the mid to lower lungs, new from previous radiograph. Main differential considerations of interstitial edema and interstitial-type pneumonia.
CXR 03/31/25: Slightly prominent interstitial pulmonary markings with some improvement from prior. No new focal pulmonary consolidation. No large pleural effusion or pneumothorax. Stable cardiomediastinal silhouette. Chronic degenerative changes of
the shoulders and spine.
RLE venous U/S: No sonographic evidence for right lower extremity deep venous thrombosis.
Echo: Normal LV function, EF 55 to 60%. RV slightly dilated. RV SF mildly decreased. Severely dilated LA. Moderately dilated RA. Severe TR. PA pressure 42 mmHg
On examination patient is mildly confused awake and alert able to answer questions.
Cardiovascular system S1-S2 appreciated, systolic murmur at right heart border
Few rales at bases
Abdomen soft and nontender
Left AKA, right lower extremity cool and mottled
#Acute hypoxemic respiratory failure:
-71% on 5L NC O2 on admission, afebrile (temp 100.2 F on admission, improved since), now weaned to 2L NC O2
-At this point this appears to be due to acute on chronic HFpEF
-Based on repeat CXR that is without consolidation, pneumonia/sepsis has been ruled out. Also, of note, UTI has been ruled out with a negative urine culture. Abx stopped 9/4AM.
-Acute metabolic encephalopathy was likely due to acute on chronic HFpEF
-Has been on IV Lasix. With GABBY, hold lasix.
-Daily wts, I/Os
-Echo above, notable for EF 55-60%, RV dilation and dysfxn, severe TR, severe LA dilation
#Afib with RVR:
-Started on Eliquis 2.5mg BID
-Cont metoprolol
-cards following, will discuss better rate control strategy with cards
# GABBY on CKD stage III-hold Lasix. Continue p.o. bicarb for chronic metabolic acidosis
#Cool RLE:- Patient was seen by vascular. No interventions planned. Recommended comfort care/hospice. Analgesics adjusted. Oxycodone 10 mg added for pain not controlled with Percocet 5 mg / 325 mg
#Hyponatremia, improved
#h/o CVA s/pt tPA 2017
# Hyperlipidemia-continue statin
# Left AKA 2015
# Solitary pulmonary nodule
#h/o Migraines
#Hypothyroidism: cont Levoxyl, TSH normal
#Essential HTN: cont BB
#DM2: HbA1C - 7.2-Cont basal/bolus insulin, SSI/accuchecks. Holding Farxiga with GABBY.
#DNR
Discussed with nursing
Await hospice discussions with the son
--- NOTE | 2025-04-03 13:17 | CM ---
Met with patient and step son. All agree to d/c back to [facility] tomorrow with hospice sign on at [facility] tomorrow. IMM signed by patient.
spoke to Don in admissions at [place] [id number] [phone]. she agrees with plan.
Resident to ask attending to do the out of hospital DNR for ambulance home
transport forms done and on chart.
--- NOTE | 2025-04-03 13:49 | PTCARENOTE ---
Medicating patient with medication as ordered for pain at right leg and back. Patient going back to [facility] hospice tomorrow. Family in room at bedside.
--- NOTE | 2025-04-03 14:38 | HOSPNOTE ---
Spoke on the telephone with patient's step son Darius - he will be meeting at [place] when patient is discharged to meet telegraph and teletype operator to review Hospice and Plan of care with patient. Will call him in the morning when transport time has been established.
--- NOTE | 2025-04-03 17:15 | W.DCSUMMARY ---
Discharge Summary
Discharge Data
Date of Admission: 03/30/25
Date of Discharge: 04/04/25
-
Pending Results: No
Hospital Course
Discharging Physician : Marivel Chang MD, Sha Hernandez MD
Disposition : [facility] on Hospice
Primary care physician : Omi Hernandes
Principal Discharge diagnosis :
Acute hypoxic respiratory failure
Heart failure with preserved ejection fraction
A-fib with rapid ventricular response
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
Hypertensive disease
Insulin-dependent diabetes mellitus
Hypothyroidism
Peripheral vascular disease
Peripheral neuropathy
Chronic ambulatory dysfunction
Chronic Discharge diagnosis :
Cerebrovascular disease (Previous TIA)
S/p above-knee amputation
S/p right first toe amputation
Chronic anemia
Hospital Course :
This is an 89-year-old female who was brought in from a care home after she was found to be unresponsive for about 5 minutes
There she was noticed by the EMT to be hypoxic with oxygen saturating in the 70s and required oxygen therapy of 6 L/min.
She was also noticed to be tachycardic and EKG showed atrial fibrillation with rapid ventricular response.
She gave a history of poor appetite, nausea and weakness for few days duration and vomiting on the day of presentation.
On presentation to the ED, she had low-grade pyrexia, was tachypneic and in mild distress, generalized wheezing on pulmonary respiratory exam with an irregularly irregular heart rate.
She was admitted and seen in consultation with cardiology, nephrology, vascular surgery, and palliative care.
She was initially evaluated for sepsis, urinary tract infection possible pneumonia and was treated with antibiotics which were discontinued following negative urine and blood culture
She was admitted on oxygen therapy now weaned to 2L/min, rate control with beta-blockers, diuresed with IV Lasix, both were adjusted to maintain cardiac and renal demand.
Consultation by the vascular surgeon no reasonable surgical option.
In light of patient comorbidities she was consulted by palliative medicine and eventually chose hospice care and needs to be discharged back to her care home for continued care.
Important imaging findings :
CT Head W/o Iv Contrast (03/30/2025)
No evidence of acute intracranial abnormality.
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 Interval increase in paranasal sinus disease especially on the right side compared to prior CT of the head. Extensive left-sided paranasal sinus disease appears fairly
stable.
US Periph Venous LOWER Ext RT (03/30/2025)
No sonographic evidence for right lower extremity deep venous thrombosis.
CR Chest Portable (03/30/2025)
Subtle increase in interstitial markings within the mid to lower lungs, new from previous radiograph.
CR Chest Portable (03/31/2025)
Slightly prominent interstitial pulmonary markings with some improvement from prior.
ECHO (04/01/2025)
1. Left ventricular cavity size is 3.00 cm which is decreased.
2. Normal left ventricular function.
3. Ejection fraction is 55-60% by visual assesment.
4. Right ventricular cavity size cavity is mildly dilated.
5. Right ventricular systolic function is mildly decreased.
6. Severely dilated left atrium left atrium.
7. Moderately dilated right atrium.
8. Severe tricuspid regurgitation.
9. Mild pulmonary hypertension. Estimated pulmonary artery pressure of 42 mmHg assuming a right atrial pressure of 8 mmHg.
10. Compared to a prior transthoracic echocardiogram study from 05/30/2018 The right ventricle appears dilated with mildly impaired function, tricuspid valve regurgitation is now severe and the IVC is dilated without inspiratory collapse. The left
atrium is now severely dilated. The right atrium is now moderately dilated.
US Periph Art LOWER Ext w NORA 04/02/2025
NORA zero. Toe pressure not performed due to absence of hallux. Arterial duplex examination reveals monophasic waveforms in the common femoral artery and profunda femoral artery. 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 The right posterior
tibial artery and dorsalis pedis artery appear to be occluded.
Renal ultrasound [04/02/2025]
1. Negative for hydronephrosis. There is asymmetric cortical thinning of the left kidney as compared with the right.
2. As above, 2.1 cm rounded probably calcified lesion along the medial aspect of the left kidney. Possibly calcified aneurysm or less likely exophytic calcified cyst. Exact etiology indeterminate, could be further evaluated with CT as warranted.
3. 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
Procedure findings :
Discharge Plan
-
Patient Disposition: Senior Living/SNF
Condition: Fair
Diet: As tolerated
Activity: As tolerated
Driving Restrictions: No driving
Bathing Restrictions: None
Referrals:
Cecilio Braga MD [Active, Internal Medicine] - in less than 1 week
UNKNOWN,NO INTERVIEW [Family Provider]
Prescriptions:
New
morphine concentrate 10 mg/0.5 mL syringe
5 mg PO Q6H PRN (Reason: Pain) Qty: 5 0RF
metoprolol succinate 50 mg Tablet Extended Release 24 Hr
75 mg PO BID Qty: 60 0RF
ondansetron HCl 4 mg Tablet
4 mg PO Q8HPRN PRN (Reason: NAUSEA) Qty: 5 0RF
Continued
sodium bicarbonate 650 MG tablet
650 mg PO BID
insulin aspart U-100 [Novolog FlexPen U-100 Insulin] 300 UNITS/3 ML insulin pen
6 units SC AC
Patient Comments:
03/30/25: if meal intake <50% give 2 units, give 3 units novolog for blood sugar 75-100, hold for bs<75
acetaminophen 325 MG tablet
650 mg PO Q4HPRN PRN (Reason: mild pain/fever )
magnesium hydroxide 30 ML suspension
30 ml PO HSPRN PRN (Reason: constipation)
lidocaine 4 % Cream
1 applic TOPICAL TIDPRN PRN (Reason: phantom limb pain)
levothyroxine 75 mcg tablet
75 mcg PO DAILY@0600
duloxetine 20 mg capsule,delayed release(DR/EC)
20 mg PO DAILY
insulin glargine [Basaglar KwikPen U-100 Insulin] 100 unit/mL (3 mL) insulin pen
12 unit SC HS
Changed
furosemide 20 mg tablet
20 mg PO DAILY PRN (Reason: Heart Failure, prn for symptoms of overload) Qty: 5 0RF
Discontinued
ferrous sulfate [FeroSul] 325 MG tablet
325 mg PO MOWEFR@0800
pravastatin 20 MG tablet
20 mg PO WE@0800
carvedilol 12.5 MG tablet
25 mg PO BID
oxycodone-acetaminophen 5-325 mg tablet
1 tab PO Q4HPRN PRN (Reason: moderate pain; use lidocaine first)
cholecalciferol (vitamin D3) 1,250 mcg (50,000 unit) capsule
1,250 mcg PO MONTHLY
dapagliflozin propanediol [Farxiga] 5 mg tablet
5 mg PO DAILY
Discharge Orders:
Discharge Patient (As Directed); Ordered 04/04/25
Ordered By: Marivel Chang
Discharge Date and Time
Discharge Date/Time: 04/04/25 11:21
Print Language: FILIPINO
--- NOTE | 2025-04-03 18:19 | W.PN.CD ---
Today's Communication / Plan
-
metoprolol 75mg po bid
hold lasix
await goc discussion
Impression / Plan
-
Impression
89-year-old female with HFpEF, chronic anemia, history of CVA, hypertension, hyperlipidemia, IDDM, PVD, hypothyroidism presenting to the ER with altered mental status and found to be septic secondary to UTI. We are consulted for new onset afib w RVR.
#HFpEF
- Echo 03/31 shows normal function severe TR Estimated PASP of 42 mmHg.
- Bed weights -- unable to stand dry weight around 135
- Elevated BNP�23,700
- Troponins negative
- Lasix on hold for rising BUN/Cr; seems to be euvolemic (tough volume exam)
- SGLT2i stopped given UTI
#A-fib with RVR
- Contributing factors-sepsis vs heart failure
- EKG - A-fib with RVR
- Pablo Vasc score of 9
- Continue Eliquis 2.5 mg, twice daily based on her age and renal function.
- Rates for the most part in 90s�110s but up higher at times, given bp better increase metoprolol to 75mg bid
- Monitor on telemetry
- Reviewed progress notes from [facility], which mentioned history of A-fib. But patient was not on DOAC as per the note.
#Peripheral vascular disease
Continue pravastatin
cold RLE now mottled: VS no intervention planned recommend hospice/comfort care
Subjective; she is sleeping but easily arousable. Bedbound
Physical Exam
Vital Signs/Labs
Vital Signs
Temp Pulse Resp BP Pulse Ox
97.6 F 98 17 104/47 95
04/03/25 15:55 04/03/25 12:00 04/03/25 12:00 04/03/25 12:00 04/03/25 08:25
04/02/25 04/03/25 04/04/25
06:59 06:59 06:59
Actual Weight 145 lb 4 oz 140 lb 2 oz
04/03/25 03:55
04/03/25 03:55
03/30/25 03/30/25
11:47 12:18
Jwk-C-Tklohblfufl Pept Cancelled
Physical Exam
Constitutional: No acute distress
Cardiovascular: JVD pressure is normal, Systolic murmur absent, Diastolic murmur absent, Rhythm/rate is irregular and Other (rle cold and mottled, lt aka)
Respiratory: Respiratory effort normal, Lungs clear to auscul., Wheeze Absent and Crackles Absent
Data Reviewed
-
Date of Service: April 03, 2025
Medical Decision Making: Review of Case with other Provider (Dr Mary ham)
EKG: Other (tele fib with elevated rates at times)
[2025-04-03 18:29] LABS: Glucose - Point of Care 104 mg/dl (70-99)
[2025-04-03 21:31] LABS: Glucose - Point of Care 97 mg/dl (70-99)
[2025-04-03] MEDS: LANTUS 0.12 UNITS SC (22:42)
[2025-04-03] MEDS: TOPROL XL 75 MG PO (22:43)
[2025-04-04] VITALS (7 sets, daily range): BP systolic 97–115; BP diastolic 37–54; BMI 22.4
[2025-04-04 05:04] LABS: Hematocrit 34.5 % (37.0-47.0); Hemoglobin 10.6 g/dL (12.0-16.0); Mean Corp Hgb Conc. 30.7 g/dL (33.0-37.0); Mean Corpuscular Volume 89.1 fL (81.0-99.0); Platelet Count 268 10^3/uL (130-400); Red Cell Dist. Width 15.6 % (11.5-14.5)
[2025-04-04] MEDS: SYNTHROID 75 MCG PO (05:18)
[2025-04-04 05:38] LABS: Blood Urea Nitrogen 69 mg/dl (7-17); Calcium 7.8 mg/dl (8.4-10.2); Carbon Dioxide 21 mmol/L (22-30); Chloride 103 mmol/L (98-107); Estimated Creatinine Clearance 16 ml/min; Glucose 111 mg/dl (70-99); Potassium 4.8 mmol/L (3.5-5.1); Sodium 134 mmol/L (135-145); eGFR 20.07
[2025-04-04] MEDS: NOVOLOG FLEXPEN-LOW RESISTANCE SC (08:57)
[2025-04-04] MEDS: NOVOLOG FLEXPEN SC (08:58)
[2025-04-04 09:06] LABS: Glucose - Point of Care 107 mg/dl (70-99)
[2025-04-04] MEDS: CYMBALTA DELAYED RELEASE 20 MG PO (09:24)
[2025-04-04] MEDS: ELIQUIS 2.5 MG PO (09:24)
[2025-04-04] MEDS: TOPROL XL 75 MG PO (09:24)
[2025-04-04] MEDS: SODIUM BICARBONATE 650 MG PO (09:24)
[2025-04-04] MEDS: DESENEX/MITRAZOL/ZEASORB 1 APPLIC TOPICAL (09:25)
--- NOTE | 2025-04-04 09:56 | PTCARENOTE ---
Patient AOx2 (person and place). Confused and forgetful at times. Bed alarm on and audible. Flat affect. 2L NC. R foot is cold, cyanotic and does not have a pulse. R foot great toe with amputation. L AKA. A fib on the monitor. BP soft, but MAP >65.
Incontinent to bowel and bladder. Patient refusing to eat. Call alex within reach, bed in lowest position, and bed of wheels locked.
--- NOTE | 2025-04-04 10:12 | W.PN.NEPH.PH ---
Today's Communication / Plan
-
likely hospice
will s/o
Assessment/Plan
-
Impression:
GABBY
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
Syncope/altered mental status
New onset AFIB
History of peripheral vascular disease
Diabetes
Hypothyroidism
Left AKA
Chronic metabolic acidosis
Hyponatremia
Plan:
GABBY: cr up at 2.3, UOP not measured , bladder scan 45cc
UA -UTI sample but cx no growth, check U pcr -likely DM nephroapthy baseline,
renal US no hydro but cortical thinning and likely calcified lesion 2.1cm of left kidney-aneurysm
Fena is low, prerenally mediated with afib and labile Bps
Holding SGLT2I and lasix in setting of acute kidney injury
-Zosyn renally dosed
BP stable now
met acidosis stable-cont sodium bicarbonate tablets for chronic metabolic acidosis
follow labs
GOC discussion ongoing, possible hospice today
-
-
Date of Service: April 04, 2025
CC / HPI / ROS
-
Chief Complaint:
Acute kidney injury
History of Present Illness:
Creatinine up at 2.3
wt is down
BP labile with tachy afib
Review of Systems:
Urine output not recorded
on O2 2lit
No fever
Labs
-
Labs:
WBC 8.6 10^3/uL (4.8-10.8) 04/04/25 04:52
RBC 3.87 10^6/uL (4.20-5.40) L 04/04/25 04:52
Hgb 10.6 g/dL (12.0-16.0) L 04/04/25 04:52
Hct 34.5 % (37.0-47.0) L 04/04/25 04:52
Plt Count 268 10^3/uL (130-400) 04/04/25 04:52
Sodium 134 mmol/L (135-145) L 04/04/25 04:52
Potassium 4.8 mmol/L (3.5-5.1) 04/04/25 04:52
Chloride 103 mmol/L (98-107) 04/04/25 04:52
Carbon Dioxide 21 mmol/L (22-30) L 04/04/25 04:52
BUN 69 mg/dl (7-17) H 04/04/25 04:52
Creatinine 2.3 mg/dL (0.6-1.0) H 04/04/25 04:52
eGFR 20.07 04/04/25 04:52
Glucose 111 mg/dl (70-99) H 04/04/25 04:52
Calcium 7.8 mg/dl (8.4-10.2) L 04/04/25 04:52
Cno-U-Yizyxsqrfjs Pept 18806 pg/ml 03/30/25 12:18
Albumin 2.5 g/dl (3.5-5.0) L 03/31/25 05:00
Physical Exam
-
Vital Signs:
Vital Signs
Temp Pulse Resp BP Pulse Ox
97.3 F 92 23 107/54 99
04/04/25 07:39 04/04/25 10:00 04/04/25 10:00 04/04/25 10:00 04/04/25 08:39
Cardiovascular:: Regular rate and rhythm
Respiratory:: Bilateral: Coarse
Lung Excursion:: Normal
Abdomen:: Nontender and Soft
Bowel Sounds:: Normal
Extremity Edema:: +1: Right: and None: Left: (left AKA)
Ruby Catheter: No
--- NOTE | 2025-04-04 10:20 | CM ---
CM spoke with [facility]. Transport confirmed for 1030a back to [facility] where pt will be signed onto [facility] @ 12noon.
Spoke with DH- confirmed dc and sign on to hospice for today @ 12noon.
Spoke with Mary/[facility]- confirmed dc. They are able to accept back today. No number for report given.
Pt is clear to dc from a CM/SW standpoint. DC order pending.
CM/SW will continue to follow to ensure a safe and timely dc.
--- NOTE | 2025-04-04 10:27 | W.PN.HOSP.TC ---
Addendum entered and electronically signed by Sha Hernandez MD 04/04/25 13:14:
Seen and examined the patient earlier today prior to discharge. Late documentation
Patient confirms that her stepson has power of director of orthopedics and she is agreeable for hospice
Resident spoke to patient's son yesterday , and confirmed hospice
Paperwork done under my supervision narcotic prescriptions, printed
Discussed with case management/nursing
Discharge coordination time more than 30 minutes
Original Note:
Today's Communication/Plan
-
for discharge home today
Assessment / Plan
Assessment / Plan
An 89-year-old female who had presented 4 days ago for an unresponsive episode show initially evaluated in the ED for UTI and sepsis.
And was found to be in A-fib with rapid ventricular response she
She had recently been treated over the past few weeks for pedal edema for possible new onset heart failure with Lasix
She is close she is currently being evaluated for cardiorenal syndrome,
She was called in to be evaluated by referred by vascular team following ultrasound finding of NORA of 0 with lower extremity bypass, CUFF SETTER LOCKSTITCH and DPA being occluded on the right lower extremity
She Has chosen to be on hospice/palliative care case management following
She Is still refusing food
For discharge home today to nursing facility
CT Head W/o Iv Contrast (03/30/2025)
No evidence of acute intracranial abnormality.
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 Interval increase in paranasal sinus disease especially on the right side compared to prior CT of the head. Extensive left-sided paranasal sinus disease appears fairly
stable.
US Periph Venous LOWER Ext RT (03/30/2025)
No sonographic evidence for right lower extremity deep venous thrombosis.
CR Chest Portable (03/30/2025)
Subtle increase in interstitial markings within the mid to lower lungs, new from previous radiograph.
CR Chest Portable (03/31/2025)
Slightly prominent interstitial pulmonary markings with some improvement from prior.
ECHO (04/01/2025)
1. Left ventricular cavity size is 3.00 cm which is decreased.
2. Normal left ventricular function.
3. Ejection fraction is 55-60% by visual assesment.
4. Right ventricular cavity size cavity is mildly dilated.
5. Right ventricular systolic function is mildly decreased.
6. Severely dilated left atrium left atrium.
7. Moderately dilated right atrium.
8. Severe tricuspid regurgitation.
9. Mild pulmonary hypertension. Estimated pulmonary artery pressure of 42 mmHg assuming a right atrial pressure of 8 mmHg.
10. Compared to a prior transthoracic echocardiogram study from 05/30/2018 The right ventricle appears dilated with mildly impaired function, tricuspid valve regurgitation is now severe and the IVC is dilated without inspiratory collapse. The left
atrium is now severely dilated. The right atrium is now moderately dilated.
Periph Art LOWER Ext w NORA 04/02/2025
NORA zero. Toe pressure not performed due to absence of hallux. Arterial duplex examination reveals monophasic waveforms in the common femoral artery and profunda femoral artery. 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 The right posterior
tibial artery and dorsalis pedis artery appear to be occluded.
Renal ultrasound [04/02/2025]
1. Negative for hydronephrosis. There is asymmetric cortical thinning of the left kidney as compared with the right.
2. As above, 2.1 cm rounded probably calcified lesion along the medial aspect of the left kidney. Possibly calcified aneurysm or less likely exophytic calcified cyst. Exact etiology indeterminate, could be further evaluated with CT as warranted.
3. 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
#Acute hypoxic respiratory failure
-Currently saturating 98% 2 L of oxygen via nasal cannula
-Head CT showed no acute ischemic changes
-Patient was found to be hypoxic saturating at 70s, with increased HR, RR, Temp
-Chest x-ray did not show any focal pneumonia,
-In light of Negative cultures and ECHO
-Presentation most likely due to HF (RHF)
-Continue oxygen therapy with a goal of >90%
-DC IVF, daily wts, I/Os
# Urinary tract infection
-Urine and blood culture negative
-Not on antibiotic
-Holding Farxiga
# Severe sepsis
- In light of - Lactic acid normal, recent UA and Blood culture negative and Echo with RHF
-Sepsis is less likely
- ABX IV Zosyn and Vanco discontinued
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
-Cr 2.0 creatinine
-Furosemide still on hold
-Continue to monitor BMP
-Sodium bicarbonate for metabolic acidosis
# Heart failure with preserved ejection fraction
- BBlockers resumed
-Farxiga and Lasix on hold
- Daily weight
-I/Os
# Cardiac arrhythmias
-EKG done in the ED shows new A-fib with RVR
-Rate control metoprolol XL 50 mg p.o.
-CHADVASC score 9
-Started Eliquis Discontinued
# Insulin-dependent diabetes mellitus
-Fair diabetes control BG 129, 03/24/2025 A1c 7.2
-Night of patient not eating monitor serum glucose Closely
- Hold Farxiga
- Low resistant insulin sliding scale
- Diabetic diet/glucose monitoring
#Hyponatremia: 134, stable trend Na with IVFs
#h/o CVA s/pt tPA 2017, continue pravastatin
#Hypothyroidism: cont Levoxyl, TSH
# H/O BKA: Oxycodone, lidocaine for phantom pain
# Chronic ambulatory dysfunction: PT/ OT signed off
#Peripheral neuropathy; duloxetine,
#Migraines
#Elderly patient with multiple co-morbidities;
DVT PPX-Eliquis
Code status- dnr
Dispo- [facility] on hospice
Anticipated Discharge: Today
Subjective/Interval History
-
Date of Service: April 04, 2025
Patient met lying in bed.
No new complaints.
Hasn't eaten anything since yesterday.
Objective Data
-
Labs:
Laboratory Results
04/04/25
04:52
WBC 8.6
Hgb 10.6 L
Hct 34.5 L
Plt Count 268
Sodium 134 L
Potassium 4.8
Chloride 103
Carbon Dioxide 21 L
BUN 69 H
Creatinine 2.3 H
Glucose 111 H
Calcium 7.8 L
Vital Signs:
Vital Signs
Temp Pulse Resp BP Pulse Ox
97.6 F 83 32 115/48 99
04/03/25 22:47 04/04/25 09:24 04/04/25 08:39 04/04/25 09:24 04/04/25 08:39
I&O
04/03/25 04/04/25 04/05/25
06:59 06:59 06:59
Intake Total 480 / 480 880 / 880
Output Total 30 / 30
Balance 450 / 450 880 / 880
Review of Systems
-
History Source: Patient
Constitutional: Reports No Appetite
Physical Exam
-
General: Appears Chronically Ill
HEENT: Oxygen
Respiratory: Clear to Auscultation (Anterior chest); Negative Wheezes or Rales
Cardiac: Regular Rhythm and Irregular Rhythm (Irregularly irregular)
Musculoskeletal: Other (Cold right lower extremity)
--- NOTE | 2025-04-04 11:01 | PTCARENOTE ---
Patient d/c to [place]. Transported by [facility] on stretcher. IV removed. Report given to Sindy at [place].
== END 2025-04-04 11:21 | DRG 871 ==
LOC: IMU 16:33
PROVIDERS: Emergency Medicine; Internal Medicine; ADMITTING PHYSICIAN Internal Medicine; ATTENDING PHYSICIAN Hospitalist; CONSULT PHYSICIAN Internal Medicine Cardiovascular Disease; EMERGENCY PHYSICIAN Emergency Medicine; OTHER PHYSICIAN Nurse Practitioner Gerontology; OTHER PHYSICIAN Specialist; OTHER PHYSICIAN Surgery Vascular Surgery
DX: A41.9 Sepsis, unspecified organism (principal); G93.41 Metabolic encephalopathy; J96.01 Acute respiratory failure with hypoxia; I13.0 Hypertensive heart and chronic kidney disease with heart failure and stage 1 through stage 4 chronic kidney disease, or unspecified chronic kidney disease; I50.30 Unspecified diastolic (congestive) heart failure; N17.9 Acute kidney failure, unspecified; E87.22 Chronic metabolic acidosis; E87.1 Hypo-osmolality and hyponatremia; N39.0 Urinary tract infection, site not specified; R65.20 Severe sepsis without septic shock; I48.91 Unspecified atrial fibrillation; N18.32 Chronic kidney disease, stage 3b; E03.9 Hypothyroidism, unspecified; E11.51 Type 2 diabetes mellitus with diabetic peripheral angiopathy without gangrene; E11.22 Type 2 diabetes mellitus with diabetic chronic kidney disease; E11.40 Type 2 diabetes mellitus with diabetic neuropathy, unspecified; Z79.4 Long term (current) use of insulin; Z86.73 Personal history of transient ischemic attack (TIA), and cerebral infarction without residual deficits; Z87.891 Personal history of nicotine dependence; Z79.890 Hormone replacement therapy; I07.1 Rheumatic tricuspid insufficiency; I27.20 Pulmonary hypertension, unspecified; D64.9 Anemia, unspecified; D73.4 Cyst of spleen; E78.00 Pure hypercholesterolemia, unspecified; G43.909 Migraine, unspecified, not intractable, without status migrainosus; G54.6 Phantom limb syndrome with pain; Z66 Do not resuscitate; Z74.01 Bed confinement status; Z79.84 Long term (current) use of oral hypoglycemic drugs; Z79.899 Other long term (current) drug therapy; Z86.12 Personal history of poliomyelitis; Z88.1 Allergy status to other antibiotic agents; Z89.612 Acquired absence of left leg above knee; L89.151 Pressure ulcer of sacral region, stage 1
CPT/HCPCS: 70450; 71045; 76775; 80048; 80053; 80202; 81003; 81015; 82570; 82962; 83605; 83880; 84156; 84300; 84443; 84484; 85025; 85027; 87040; 87086; 87641; 93005; 93306; 93922; 93925; 93971; 96361; 96365; 99291